=== PATIENT | female | born 1960 | race Caucasian/White ===

== ENCOUNTER 2016-07-26 07:07 | Emergency (ER) | payer MEDICARE ==
[~2016-07-26] VITALS: Ht 172.7 cm; Wt 97.2 kg
[~2016-07-26 07:07] MED LIST: ALBU0.63 NEB; ALBU6.7H INH; ALPR-475 PO; ASCO10004 PO; CYCL-259 PO; ESCI20TA10 PO; FLUT1DIS3 INH; IBUP-1 PO; LISI-170 PO; MAGNESIUM PO; OMEP40CA6 PO; ONDA8TAB12 PO; SIMV20TA3 PO; ZOLP10TA PO; [UNRECOGNIZED DRUG - OTHER] EACHEYE
[2016-07-26 07:08] VITALS: BP 137/82
== END 2016-07-26 09:49 | disposition home or self-care (01) ==
LOC: ED 09:35
DX: S06.0X0A Concussion without loss of consciousness, initial encounter (principal); S63.502A Unspecified sprain of left wrist, initial encounter; S40.012A Contusion of left shoulder, initial encounter; S20.212A Contusion of left front wall of thorax, initial encounter; J44.9 Chronic obstructive pulmonary disease, unspecified; I10 Essential (primary) hypertension; E78.00 Pure hypercholesterolemia, unspecified; I25.2 Old myocardial infarction; Z79.899 Other long term (current) drug therapy; W01.0XXA Fall on same level from slipping, tripping and stumbling without subsequent striking against object, initial encounter; Y93.89 Activity, other specified; Y99.8 Other external cause status; Y92.89 Other specified places as the place of occurrence of the external cause
CPT/HCPCS: 70450; 70486; 71250; 72125; 99284

== ENCOUNTER 2016-10-18 21:57 | Emergency (ER) | payer MEDICARE ==
[~2016-10-18] VITALS: Ht 172.7 cm; Wt 93.0 kg
[2016-10-18 22:00] VITALS: BP 93/61
== END 2016-10-18 23:46 | disposition left against medical advice (07) ==
LOC: ED 23:26
DX: R17 Unspecified jaundice (principal); E78.00 Pure hypercholesterolemia, unspecified; I25.2 Old myocardial infarction; I10 Essential (primary) hypertension; J44.9 Chronic obstructive pulmonary disease, unspecified
CPT/HCPCS: 99281

== ENCOUNTER 2016-10-25 13:34 | Observation (INO) | payer MEDICARE ==
[~2016-10-25] VITALS: Ht 172.7 cm; Wt 94.5 kg
[2016-10-25] MEDS ORDERED: SODIUM CHLORIDE 0.9% 1,000ML IVBOLUS ONE ×2 (14:00→15:00)
[2016-10-25 14:23] LABS: BLOOD UREA NITROGEN 21 mg/dL (7-18)
[2016-10-25 14:32] LABS: ASPARTATE AMINO TRANSFERASE 1170 U/L (15-37)
[2016-10-25 14:34] LABS: ACETAMINOPHEN < 2 mcg/mL (10-30); IS PT STATUS REG ER OR PRE ER? YES
[2016-10-25] MEDS ORDERED: BISACODYL 10 MG SUPP PR PRN (16:00)
[2016-10-25] MEDS ORDERED: ONDANSETRON 2MG/ML, 2ML IVPush PRN (16:00)
[2016-10-25] MEDS ORDERED: LORazepam 1MG TABLET PO PRN (16:00)
[2016-10-25] MEDS ORDERED: ONDANSETRON ODT 4 MG PO PRN (16:00)
[2016-10-25] MEDS ORDERED: ENOXAPARIN 40 MG/0.4 ML SQ SCH (16:00)
[2016-10-25] MEDS ORDERED: ALBUTEROL SULFATE 2.5 MG/3 ML NEB PRN ×2 (16:30→18:57)
[2016-10-25] MEDS ORDERED: ALBUTEROL SULFATE INH PRN (16:30)
[2016-10-25] MEDS ORDERED: ENOXAPARIN 40 MG/0.4 ML ONE (16:54)
[2016-10-25] MEDS: SODIUM CHLORIDE 0.9% 1,000 ML IV SCH ×2 (16:59→19:45)
[2016-10-25 17:22] LABS: DAU SCREEN DISCLAIMER
[2016-10-25 19:06] VITALS: BP 113/63
[2016-10-25 19:07] VITALS: BP 113/63
[2016-10-25] MEDS: LACTULOSE 10 GM/15 ML UDC PO SCH (19:45)
[2016-10-25] MEDS: SIMVASTATIN 20 MG TABLET PO SCH ×2 (19:46→21:00)
[2016-10-25 19:57] VITALS: BP 113/63
[2016-10-25] MEDS ORDERED: LISINOPRIL 20 MG TABLET PO SCH (21:00)
[2016-10-25] MEDS ORDERED: TIZA4CAP PO (23:45)
[2016-10-26] VITALS (8 sets, daily range): BP systolic 88–119; BP diastolic 56–72
[2016-10-26] MEDS: SODIUM CHLORIDE 0.9% 1,000 ML IV SCH ×2 (02:41→10:25)
[2016-10-26 06:50] LABS: ASPARTATE AMINO TRANSFERASE 720 U/L (15-37); BLOOD UREA NITROGEN 15 mg/dL (7-18)
[2016-10-26] MEDS: CITALOPRAM 20 MG TABLET PO SCH (10:08)
[2016-10-26] MEDS: SENNA/DOCUSATE TABLET PO SCH (10:08)
[2016-10-26] MEDS: LACTULOSE 10 GM/15 ML UDC PO SCH ×2 (10:08→21:43)
[2016-10-26] MEDS: OMEPRAZOLE 20 MG CAPSULE.DR PO SCH (10:09)
[2016-10-26] MEDS: FLUTICASONE/VILANTEROL 100-25MCG/INH INH SCH (12:02)
[2016-10-26] MEDS ORDERED: ENOXAPARIN 30 MG/0.3 ML SQ SCH (16:00)
[2016-10-26] MEDS: ENOXAPARIN 40 MG/0.4 ML SQ SCH (16:08)
[2016-10-26] MEDS: LATANOPROST OPHTH 0.005%, 2.5ML EACHEYE SCH (21:00)
[2016-10-26] MEDS: SIMVASTATIN 20 MG TABLET PO SCH (21:00)
[2016-10-27 05:02] LABS: BLOOD UREA NITROGEN 8 mg/dL (7-18)
[2016-10-27 07:20] VITALS: BP 124/78
[2016-10-27] MEDS: CITALOPRAM 20 MG TABLET PO SCH (08:43)
[2016-10-27] MEDS: OMEPRAZOLE 20 MG CAPSULE.DR PO SCH (08:43)
[2016-10-27] MEDS: LACTULOSE 10 GM/15 ML UDC PO SCH ×2 (08:43→21:12)
[2016-10-27] MEDS: SENNA/DOCUSATE TABLET PO SCH (08:44)
[2016-10-27] MEDS ORDERED: LATANOPROST OPHTH 0.005%, 2.5ML OP SCH (09:00)
[2016-10-27] MEDS: FLUTICASONE/VILANTEROL 100-25MCG/INH INH SCH (09:03)
[2016-10-27] MEDS: ENOXAPARIN 40 MG/0.4 ML SQ SCH (16:09)
[2016-10-27 19:29] VITALS: BP 138/72
[2016-10-27] MEDS: SIMVASTATIN 20 MG TABLET PO SCH ×2 (21:00→21:12)
[2016-10-27] MEDS: LATANOPROST OPHTH 0.005%, 2.5ML EACHEYE SCH (21:12)
[2016-10-28 07:35] VITALS: BP 156/76
[2016-10-28] MEDS: FLUTICASONE/VILANTEROL 100-25MCG/INH INH SCH (09:17)
[2016-10-28] MEDS: OMEPRAZOLE 20 MG CAPSULE.DR PO SCH (09:21)
[2016-10-28] MEDS: LACTULOSE 10 GM/15 ML UDC PO SCH ×2 (09:21→21:39)
[2016-10-28] MEDS: CITALOPRAM 20 MG TABLET PO SCH (09:21)
[2016-10-28] MEDS: SENNA/DOCUSATE TABLET PO SCH (09:24)
[2016-10-28] MEDS: ENOXAPARIN 40 MG/0.4 ML SQ SCH (16:23)
[2016-10-28] MEDS: POLYETHYLENE GLYCOL 17 GM PACKET PO PRN (18:19)
[2016-10-28 19:45] VITALS: BP 161/99
[2016-10-28] MEDS: LATANOPROST OPHTH 0.005%, 2.5ML EACHEYE SCH (21:38)
[2016-10-29] VITALS (10 sets, daily range): BP systolic 131–163; BP diastolic 54–91
[2016-10-29 06:00] LABS: ASPARTATE AMINO TRANSFERASE 330 U/L (15-37); BLOOD UREA NITROGEN 5 mg/dL (7-18)
[2016-10-29] MEDS: CITALOPRAM 20 MG TABLET PO SCH (09:00)
[2016-10-29] MEDS: FLUTICASONE/VILANTEROL 100-25MCG/INH INH SCH (09:00)
[2016-10-29] MEDS ORDERED: LIDOCAINE 1%, 20ML ONE (09:48)
[2016-10-29] MEDS ORDERED: NALOXONE 1 MG/ML, 2ML ONE (09:53)
[2016-10-29] MEDS ORDERED: MIDAZOLAM 1 MG/ML, 5ML ONE (09:53)
[2016-10-29] MEDS ORDERED: FENTANYL PF 100 MCG/2ML ONE (09:53)
[2016-10-29] MEDS ORDERED: FLUMAZENIL 0.1 MG/1 ML, 5ML ONE (09:53)
[2016-10-29] MEDS: LACTULOSE 10 GM/15 ML UDC PO SCH ×2 (12:24→20:47)
[2016-10-29] MEDS: OMEPRAZOLE 20 MG CAPSULE.DR PO SCH (12:24)
[2016-10-29] MEDS: SENNA/DOCUSATE TABLET PO SCH (12:25)
[2016-10-29] MEDS: ENOXAPARIN 40 MG/0.4 ML SQ SCH (16:00)
[2016-10-29] MEDS: LATANOPROST OPHTH 0.005%, 2.5ML EACHEYE SCH (20:47)
[2016-10-29] MEDS: POLYETHYLENE GLYCOL 17 GM PACKET PO PRN (20:53)
[2016-10-30 08:19] VITALS: BP 162/87
[2016-10-30] MEDS: FLUTICASONE/VILANTEROL 100-25MCG/INH INH SCH (08:22)
[2016-10-30] MEDS: LACTULOSE 10 GM/15 ML UDC PO SCH ×2 (08:22→20:42)
[2016-10-30] MEDS: SENNA/DOCUSATE TABLET PO SCH (08:22)
[2016-10-30] MEDS: CITALOPRAM 20 MG TABLET PO SCH (08:22)
[2016-10-30] MEDS: OMEPRAZOLE 20 MG CAPSULE.DR PO SCH (08:22)
[2016-10-30] MEDS: POLYETHYLENE GLYCOL 17 GM PACKET PO PRN (14:25)
[2016-10-30] MEDS: ENOXAPARIN 40 MG/0.4 ML SQ SCH (15:35)
[2016-10-30 19:39] VITALS: BP 183/92
[2016-10-30 19:51] VITALS: BP 155/83
[2016-10-30] MEDS: LATANOPROST OPHTH 0.005%, 2.5ML EACHEYE SCH (20:42)
[2016-10-31 08:00] VITALS: BP 179/97
[2016-10-31] MEDS: LACTULOSE 10 GM/15 ML UDC PO SCH ×2 (08:38→20:15)
[2016-10-31] MEDS: FLUTICASONE/VILANTEROL 100-25MCG/INH INH SCH (08:38)
[2016-10-31] MEDS: SENNA/DOCUSATE TABLET PO SCH (08:39)
[2016-10-31] MEDS: OMEPRAZOLE 20 MG CAPSULE.DR PO SCH (08:39)
[2016-10-31] MEDS: CITALOPRAM 20 MG TABLET PO SCH (08:39)
[2016-10-31] MEDS: POLYETHYLENE GLYCOL 17 GM PACKET PO PRN (12:57)
[2016-10-31] MEDS: ENOXAPARIN 40 MG/0.4 ML SQ SCH (15:48)
[2016-10-31 20:05] VITALS: BP 159/84
[2016-10-31] MEDS: AMLODIPINE 5 MG TABLET PO SCH (20:15)
[2016-10-31] MEDS: LATANOPROST OPHTH 0.005%, 2.5ML EACHEYE SCH (20:15)
[2016-11-01 07:05] VITALS: BP 135/80
[2016-11-01] MEDS: AMLODIPINE 5 MG TABLET PO SCH (09:00)
[2016-11-01] MEDS: CITALOPRAM 20 MG TABLET PO SCH (09:28)
[2016-11-01] MEDS: OMEPRAZOLE 20 MG CAPSULE.DR PO SCH (09:28)
[2016-11-01] MEDS: SENNA/DOCUSATE TABLET PO SCH (09:29)
[2016-11-01] MEDS: FLUTICASONE/VILANTEROL 100-25MCG/INH INH SCH (09:33)
[2016-11-01] MEDS: LACTULOSE 10 GM/15 ML UDC PO SCH (10:07)
[2016-11-01] MEDS: ENOXAPARIN 40 MG/0.4 ML SQ SCH (16:00)
[2016-11-01] MEDS ORDERED: CITA20TA9 PO (16:14)
[2016-11-01] MEDS ORDERED: OMEP-110 PO (16:14)
[2016-11-01] MEDS ORDERED: LATA2.5D3 EACHEYE (16:14)
[2016-11-01] MEDS ORDERED: AMLO5TAB2 PO (16:14)
[2016-11-01] MEDS ORDERED: ONDA4TAB13 PO (16:14)
[2016-11-01] MEDS ORDERED: LACT10SO5 PO (16:14)
[2016-11-01] MEDS ORDERED: POLY17PO5 PO (16:14)
[2016-11-01] MEDS ORDERED: ALBU2.5V NEB (16:14)
[2016-11-01] MEDS ORDERED: ALBUTEROL SULFATE INH (16:14)
[2016-11-01] MEDS ORDERED: FLUT1AER INH (16:14)
[2016-11-01] MEDS ORDERED: LISI-170 PO (16:18)
[2016-11-03 15:06] LABS: ANA DIRECT Negative (Negative); COMPLEMENT C3 88 mg/dL (82-167); COMPLEMENT C4 22 mg/dL (14-44); INTERMYOFIBRILLAR AB Negative (Neg:<1:20); PARIETAL CELL AB 28.4 Units (0.0-20.0); RA LATEX TURBIDITY <10.0 IU/mL (0.0-13.9); SARCOLEMMA AB Negative (Neg:<1:20); SJOGREN'S SS-A AB <0.2 AI (0.0-0.9); STRIATION AB Negative (Neg:<1:40); THYROID PEROXIDASE (TPO) AB 25 IU/mL (0-34)
== END 2016-11-01 17:18 | disposition still patient (30) ==
LOC: ED 15:29 → EDIP 15:30 → INTOOBSV 15:30 → 4EST 18:51 → 3E 10-26 20:27
DX: R45.851 Suicidal ideations (principal); K72.90 Hepatic failure, unspecified without coma; T54.91XA Toxic effect of unspecified corrosive substance, accidental (unintentional), initial encounter; E87.1 Hypo-osmolality and hyponatremia; N17.9 Acute kidney failure, unspecified; G89.29 Other chronic pain; K58.1 Irritable bowel syndrome with constipation; I25.10 Atherosclerotic heart disease of native coronary artery without angina pectoris; I10 Essential (primary) hypertension; E78.5 Hyperlipidemia, unspecified; I95.9 Hypotension, unspecified; F12.10 Cannabis abuse, uncomplicated; F15.20 Other stimulant dependence, uncomplicated; F43.21 Adjustment disorder with depressed mood; I25.2 Old myocardial infarction; J44.9 Chronic obstructive pulmonary disease, unspecified; K59.09 Other constipation; Y92.89 Other specified places as the place of occurrence of the external cause; Z80.9 Family history of malignant neoplasm, unspecified; Z91.81 History of falling
CPT/HCPCS: 36415; 47000; 76700; 76942; 80048; 80053; 80307; 80329; 81001; 82105; 82140; 82390; 82550; 82728; 83516; 84484; 85025; 85610; 85651; 86038; 86141; 86160; 86225; 86235; 86255; 86256; 86376; 86431; 86704; 86706; 86708; 86803; 87086; 87340; 88307; 88313; 93005; 96360; 96361; 96372; 99156; 99157; 99291; G0378; J1650; J2250; J3010; J3490; J7030; G0480; J2310

== ENCOUNTER 2016-11-14 00:39 | Emergency (ER) | payer MEDICARE ==
[~2016-11-14] VITALS: Ht 172.7 cm; Wt 90.7 kg
[~2016-11-14 00:39] MED LIST changes: +ALBU2.5V NEB; +ALBUTEROL SULFATE INH; +AMLO5TAB2 PO; +CITA20TA9 PO; +FLUT1AER INH; +LACT10SO5 PO; +LATA2.5D3 EACHEYE; +OMEP-110 PO; +ONDA4TAB13 PO; +POLY17PO5 PO; +TIZA4CAP PO
[2016-11-14 00:40] VITALS: BP 137/81
== END 2016-11-14 01:46 | disposition home or self-care (01) ==
LOC: ED 01:08
DX: S63.501A Unspecified sprain of right wrist, initial encounter (principal); J44.9 Chronic obstructive pulmonary disease, unspecified; I10 Essential (primary) hypertension; J45.909 Unspecified asthma, uncomplicated; I25.2 Old myocardial infarction; Z90.710 Acquired absence of both cervix and uterus; X58.XXXA Exposure to other specified factors, initial encounter; Y93.89 Activity, other specified; Y92.89 Other specified places as the place of occurrence of the external cause; Y99.8 Other external cause status
CPT/HCPCS: 99284

== ENCOUNTER 2016-11-18 20:40 | Emergency (ER) | payer MEDICARE ==
[~2016-11-18] VITALS: Ht 172.7 cm; Wt 95.9 kg
[2016-11-18 23:18] LABS: HEMATOCRIT 32.7 % (34.6-47.8); HEMOGLOBIN 10.8 g/dL (11.7-16.4); WHITE BLOOD COUNT 7.2 x10^3/uL (3.4-10)
[2016-11-18 23:29] LABS: ASPARTATE AMINO TRANSFERASE 412 U/L (15-37); BLOOD UREA NITROGEN 11 mg/dL (7-18)
[2016-11-18 23:35] LABS: IS PT STATUS REG ER OR PRE ER? YES
[2016-11-19 01:00] VITALS: BP 118/76
== END 2016-11-19 01:03 | disposition home or self-care (01) ==
LOC: ED 22:17
DX: R60.0 Localized edema (principal); E88.09 Other disorders of plasma-protein metabolism, not elsewhere classified; R74.8 Abnormal levels of other serum enzymes; Z72.89 Other problems related to lifestyle; J44.9 Chronic obstructive pulmonary disease, unspecified; I10 Essential (primary) hypertension
CPT/HCPCS: 36415; 71010; 80053; 83880; 84484; 85025; 93005; 99285

== ENCOUNTER 2016-12-03 13:15 | Inpatient (IN) | payer MEDICARE ==
[~2016-12-03] VITALS: Ht 172.7 cm; Wt 89.6 kg
[~2016-12-03 13:15] MED LIST changes: -IBUP-1 PO; +IBUP-11 PO
[2016-12-03] MEDS ORDERED: KETOROLAC 30 MG/1 ML IVPush ONE (14:00)
[2016-12-03] MEDS ORDERED: SODIUM CHLORIDE 0.9% 1,000ML IVBOLUS ONE (14:00)
[2016-12-03] MEDS ORDERED: SODIUM CHLORIDE FLUSH 10ML SYR IVF ONE ×2 (14:00)
[2016-12-03] MEDS ORDERED: DIPHENHYDRAMINE 50 MG/ML, 1ML IVPush ONE (14:00)
[2016-12-03] MEDS ORDERED: ASPIRIN 81 MG TABLET CHEW PO ONE (14:00)
[2016-12-03] MEDS ORDERED: HALOPERIDOL 5 MG/ML IV ONE (14:00)
[2016-12-03] MEDS ORDERED: METOCLOPRAMIDE 5 MG/ML, 2ML IVPush ONE (14:00)
[2016-12-03 14:03] LABS: HEMATOCRIT 40.7 % (34.6-47.8); HEMOGLOBIN 13.5 g/dL (11.7-16.4); WHITE BLOOD COUNT 6.7 x10^3/uL (3.4-10)
[2016-12-03] MEDS ORDERED: METOCLOPRAMIDE 5 MG/ML, 2ML ONE (14:08)
[2016-12-03] MEDS ORDERED: ASPIRIN 81 MG TABLET CHEW ONE (14:08)
[2016-12-03] MEDS ORDERED: HALOPERIDOL 5 MG/ML ONE (14:08)
[2016-12-03] MEDS ORDERED: DIPHENHYDRAMINE 50 MG/ML, 1ML ONE (14:08)
[2016-12-03] MEDS ORDERED: KETOROLAC 30 MG/1 ML ONE (14:08)
[2016-12-03 14:13] LABS: BLOOD UREA NITROGEN 13 mg/dL (7-18)
[2016-12-03 14:18] LABS: ASPARTATE AMINO TRANSFERASE 595 U/L (15-37)
[2016-12-03 14:19] LABS: IS PT STATUS REG ER OR PRE ER? YES
[2016-12-03] MEDS ORDERED: ONDANSETRON 2MG/ML, 2ML IVPush PRN (16:30)
[2016-12-03] MEDS ORDERED: ALBUTEROL SULFATE 2.5 MG/3 ML NEB PRN (16:30)
[2016-12-03] MEDS ORDERED: ACETAMINOPHEN 325 MG TABLET PO PRN (16:30)
[2016-12-03] MEDS ORDERED: ENOXAPARIN 40 MG/0.4 ML ONE (16:36)
[2016-12-03] MEDS: ENOXAPARIN 40 MG/0.4 ML SQ SCH (16:38)
[2016-12-03] MEDS ORDERED: VALACYCLOVIR 500MG TABLET PO ONE (17:00)
[2016-12-03] MEDS: VALACYCLOVIR 500MG TABLET PO SCH (17:37)
[2016-12-03 18:29] VITALS: BP 105/68
[2016-12-03 20:14] VITALS: BP 106/66
[2016-12-03] MEDS: AMLODIPINE 5 MG TABLET PO SCH (20:37)
[2016-12-03] MEDS: LACTULOSE 10 GM/15 ML UDC PO SCH (20:37)
[2016-12-03] MEDS ORDERED: LATANOPROST OPHTH 0.005%, 2.5ML EACHEYE SCH (21:00)
[2016-12-03 21:16] LABS: DAU SCREEN DISCLAIMER
[2016-12-03] MEDS: LACTATED RINGERS 1,000 ML IV SCH (22:28)
[2016-12-03] MEDS ORDERED: CYAN100063 IM (22:47)
[2016-12-03] MEDS ORDERED: FOLI0.4T2 PO (22:47)
[2016-12-04 00:03] LABS: IS PT STATUS REG ER OR PRE ER? NO
[2016-12-04] MEDS: VALACYCLOVIR 500MG TABLET PO SCH ×3 (00:42→15:39)
[2016-12-04 02:11] VITALS: BP 79/50
[2016-12-04 03:21] VITALS: BP 82/57
[2016-12-04] MEDS ORDERED: SODIUM CHLORIDE 0.9%, 250ML IVBOLUS ONE (04:00)
[2016-12-04 05:12] LABS: BLOOD UREA NITROGEN 8 mg/dL (7-18)
[2016-12-04 05:24] LABS: IS PT STATUS REG ER OR PRE ER? NO
[2016-12-04] MEDS ORDERED: ASPIRIN 325 MG TABLET EC PO SCH (06:00)
[2016-12-04] MEDS: LACTATED RINGERS 1,000 ML IV SCH (06:28)
[2016-12-04 08:28] VITALS: BP 101/54
[2016-12-04] MEDS: AMLODIPINE 5 MG TABLET PO SCH (08:55)
[2016-12-04] MEDS ORDERED: CITALOPRAM 20 MG TABLET PO SCH (09:00)
[2016-12-04] MEDS ORDERED: OMEPRAZOLE 20 MG CAPSULE.DR PO SCH (09:00)
[2016-12-04] MEDS: LACTULOSE 10 GM/15 ML UDC PO SCH (09:00)
[2016-12-04] MEDS ORDERED: POTASSIUM CHLORIDE 20 MEQ TAB.ER.PRT PO ONE (11:00)
[2016-12-04 13:22] VITALS: BP 95/58
[2016-12-04] MEDS ORDERED: REGADENOSON 0.4 MG/5 ML SYRINGE ONE (14:02)
[2016-12-04] MEDS: ENOXAPARIN 40 MG/0.4 ML SQ SCH (15:40)
== END 2016-12-04 18:16 | disposition home or self-care (01) | DRG 896 ==
LOC: ED 13:59 → EDIP 15:48 → SUATTDRO 16:15 → 5SO 18:17
PROVIDERS: ADMIT Internal Medicine; ATTEND Internal Medicine
DX: F15.188 Other stimulant abuse with other stimulant-induced disorder (principal); N17.0 Acute kidney failure with tubular necrosis; B02.9 Zoster without complications; J98.4 Other disorders of lung; E87.5 Hyperkalemia; K75.9 Inflammatory liver disease, unspecified; I10 Essential (primary) hypertension; R07.89 Other chest pain; I25.2 Old myocardial infarction; E87.6 Hypokalemia; F17.290 Nicotine dependence, other tobacco product, uncomplicated; F41.9 Anxiety disorder, unspecified; J44.9 Chronic obstructive pulmonary disease, unspecified; E86.1 Hypovolemia; Z59.0 Homelessness; Z90.49 Acquired absence of other specified parts of digestive tract; Z98.51 Tubal ligation status; Z90.710 Acquired absence of both cervix and uterus; Z79.899 Other long term (current) drug therapy; V43.52XA Car driver injured in collision with other type car in traffic accident, initial encounter; F12.188 Cannabis abuse with other cannabis-induced disorder; F13.188 Sedative, hypnotic or anxiolytic abuse with other sedative, hypnotic or anxiolytic-induced disorder
CPT/HCPCS: 36415; 71010; 78452; 80048; 80053; 80061; 80307; 83690; 83735; 83880; 84100; 84484; 85025; 85610; 85730; 93005; 93017; 96361; 96374; 96375; J1650; J1885; J2785; A9502; C9898; J1200; J1630; J2765; J7030; J7050; J7120

== ENCOUNTER 2016-12-04 21:46 | Observation (INO) | payer MEDICARE ==
[~2016-12-04] VITALS: Ht 172.7 cm; Wt 85.2 kg
[~2016-12-04 21:46] MED LIST changes: +CYAN100063 IM; +FOLI0.4T2 PO
[2016-12-04 22:10] LABS: HEMATOCRIT 38.7 % (34.6-47.8); HEMOGLOBIN 12.7 g/dL (11.7-16.4); WHITE BLOOD COUNT 7.9 x10^3/uL (3.4-10)
[2016-12-04 22:18] LABS: DAU SCREEN DISCLAIMER
[2016-12-04 22:20] LABS: ASPARTATE AMINO TRANSFERASE 528 U/L (15-37); BLOOD UREA NITROGEN 7 mg/dL (7-18)
[2016-12-04 22:27] LABS: ACETAMINOPHEN < 2 mcg/mL (10-30)
[2016-12-05] MEDS ORDERED: BISACODYL 10 MG SUPP PR PRN (02:30)
[2016-12-05] MEDS ORDERED: SODIUM CHLORIDE 0.9% 1,000 ML IV SCH (02:30)
[2016-12-05] MEDS ORDERED: ALBUTEROL SULFATE 2.5 MG/3 ML NEB PRN (03:00)
[2016-12-05] MEDS ORDERED: ONDANSETRON ODT 4 MG PO PRN (03:00)
[2016-12-05 08:00] VITALS: BP 102/65
[2016-12-05] MEDS ORDERED: ALBUTEROL SULFATE INH PRN (08:00)
[2016-12-05] MEDS ORDERED: TIZANIDINE 4MG TABLET PO PRN (08:00)
[2016-12-05] MEDS ORDERED: PHARMACY MAY ADJ FOR RENAL FX MC PRN (08:30)
[2016-12-05] MEDS ORDERED: SENNA/DOCUSATE TABLET PO SCH (09:00)
[2016-12-05] MEDS ORDERED: CYANOCOBALAMIN 1,000 MCG/ML, 1ML IM SCH (09:00)
[2016-12-05] MEDS: LACTULOSE 10 GM/15 ML UDC PO SCH ×2 (09:16→20:07)
[2016-12-05] MEDS: CITALOPRAM 20 MG TABLET PO SCH (09:16)
[2016-12-05] MEDS: FOLIC ACID 1 MG TABLET PO SCH (09:26)
[2016-12-05] MEDS: AMLODIPINE 5 MG TABLET PO SCH ×2 (09:26→20:10)
[2016-12-05] MEDS: FLUTICASONE/VILANTEROL 100-25MCG/INH INH SCH (11:15)
[2016-12-05] MEDS: SODIUM CHLORIDE 0.9% 1,000 ML IV SCH ×2 (11:15→20:08)
[2016-12-05 13:13] VITALS: BP_SYST 90; BP_SYST 92; BP_DIAS 53; BP_DIAS 55
[2016-12-05 19:04] VITALS: BP 84/40
[2016-12-05] MEDS: LATANOPROST OPHTH 0.005%, 2.5ML EACHEYE SCH (20:07)
[2016-12-06 00:37] VITALS: BP 100/56
[2016-12-06] MEDS: SODIUM CHLORIDE 0.9% 1,000 ML IV SCH ×3 (04:10→20:08)
[2016-12-06 05:45] LABS: BLOOD UREA NITROGEN 4 mg/dL (7-18)
[2016-12-06 05:47] LABS: ASPARTATE AMINO TRANSFERASE 441 U/L (15-37)
[2016-12-06 08:43] VITALS: BP 110/51
[2016-12-06] MEDS: FLUTICASONE/VILANTEROL 100-25MCG/INH INH SCH (08:45)
[2016-12-06] MEDS: LACTULOSE 10 GM/15 ML UDC PO SCH ×2 (08:45→20:08)
[2016-12-06] MEDS: CITALOPRAM 20 MG TABLET PO SCH (08:45)
[2016-12-06] MEDS: AMLODIPINE 5 MG TABLET PO SCH ×2 (08:45→20:09)
[2016-12-06] MEDS: SENNA/DOCUSATE TABLET PO SCH (08:45)
[2016-12-06] MEDS: FOLIC ACID 1 MG TABLET PO SCH (08:45)
[2016-12-06] MEDS ORDERED: DIPHENHYDRAMINE 25 MG CAPSULE PO PRN (09:30)
[2016-12-06] MEDS: VALACYCLOVIR 500MG TABLET PO SCH ×2 (10:20→17:51)
[2016-12-06 14:03] VITALS: BP 120/76
[2016-12-06] MEDS: GABAPENTIN 100 MG CAPSULE PO SCH ×2 (16:33→20:09)
[2016-12-06 19:40] VITALS: BP 116/72
[2016-12-06] MEDS: LATANOPROST OPHTH 0.005%, 2.5ML EACHEYE SCH (20:08)
[2016-12-06] MEDS: ONDANSETRON ODT 4 MG PO PRN (23:47)
[2016-12-07 00:12] VITALS: BP 136/71
[2016-12-07] MEDS: VALACYCLOVIR 500MG TABLET PO SCH ×3 (01:13→17:33)
[2016-12-07] MEDS: SODIUM CHLORIDE 0.9% 1,000 ML IV SCH (03:43)
[2016-12-07] MEDS: ONDANSETRON ODT 4 MG PO PRN (07:20)
[2016-12-07 08:22] LABS: BLOOD UREA NITROGEN 2 mg/dL (7-18)
[2016-12-07 08:45] VITALS: BP 131/75
[2016-12-07] MEDS: FLUTICASONE/VILANTEROL 100-25MCG/INH INH SCH (09:47)
[2016-12-07] MEDS: FOLIC ACID 1 MG TABLET PO SCH (09:47)
[2016-12-07] MEDS: CITALOPRAM 20 MG TABLET PO SCH (09:47)
[2016-12-07] MEDS: SENNA/DOCUSATE TABLET PO SCH (09:47)
[2016-12-07] MEDS: AMLODIPINE 5 MG TABLET PO SCH ×2 (09:47→20:44)
[2016-12-07] MEDS: LACTULOSE 10 GM/15 ML UDC PO SCH ×2 (09:48→20:44)
[2016-12-07] MEDS: GABAPENTIN 100 MG CAPSULE PO SCH ×3 (09:48→20:44)
[2016-12-07 12:40] VITALS: BP 132/59
[2016-12-07 19:37] VITALS: BP 134/87
[2016-12-07] MEDS: LATANOPROST OPHTH 0.005%, 2.5ML EACHEYE SCH (20:44)
[2016-12-08] MEDS: VALACYCLOVIR 500MG TABLET PO SCH ×3 (01:17→17:44)
[2016-12-08 01:18] VITALS: BP 139/76
[2016-12-08 07:20] VITALS: BP 140/74
[2016-12-08] MEDS: FLUTICASONE/VILANTEROL 100-25MCG/INH INH SCH (10:30)
[2016-12-08] MEDS: GABAPENTIN 100 MG CAPSULE PO SCH ×3 (10:31→21:27)
[2016-12-08] MEDS: CITALOPRAM 20 MG TABLET PO SCH (10:31)
[2016-12-08] MEDS: FOLIC ACID 1 MG TABLET PO SCH (10:31)
[2016-12-08] MEDS: AMLODIPINE 5 MG TABLET PO SCH ×2 (10:31→21:27)
[2016-12-08] MEDS: SENNA/DOCUSATE TABLET PO SCH (10:31)
[2016-12-08] MEDS: LACTULOSE 10 GM/15 ML UDC PO SCH ×2 (10:31→21:27)
[2016-12-08 13:15] VITALS: BP 148/81
[2016-12-08 19:16] VITALS: BP 138/69
[2016-12-08] MEDS: LATANOPROST OPHTH 0.005%, 2.5ML EACHEYE SCH (21:27)
[2016-12-09 01:07] VITALS: BP 139/80
[2016-12-09] MEDS: VALACYCLOVIR 500MG TABLET PO SCH ×3 (02:30→16:46)
[2016-12-09 07:17] VITALS: BP 144/85
[2016-12-09] MEDS: AMLODIPINE 5 MG TABLET PO SCH ×2 (10:24→20:17)
[2016-12-09] MEDS: FLUTICASONE/VILANTEROL 100-25MCG/INH INH SCH (10:24)
[2016-12-09] MEDS: GABAPENTIN 100 MG CAPSULE PO SCH ×3 (10:24→20:17)
[2016-12-09] MEDS: FOLIC ACID 1 MG TABLET PO SCH (10:25)
[2016-12-09] MEDS: SENNA/DOCUSATE TABLET PO SCH (10:25)
[2016-12-09] MEDS: CITALOPRAM 20 MG TABLET PO SCH (10:25)
[2016-12-09] MEDS: LACTULOSE 10 GM/15 ML UDC PO SCH ×2 (10:26→20:17)
[2016-12-09] MEDS: ONDANSETRON ODT 8 MG PO PRN (10:30)
[2016-12-09 14:07] VITALS: BP 141/80
[2016-12-09 19:02] VITALS: BP 128/70
[2016-12-09] MEDS: LATANOPROST OPHTH 0.005%, 2.5ML EACHEYE SCH (20:17)
[2016-12-09] MEDS: ONDANSETRON ODT 4 MG PO PRN (22:54)
[2016-12-10] MEDS: VALACYCLOVIR 500MG TABLET PO SCH ×3 (00:57→17:08)
[2016-12-10 02:45] VITALS: BP 138/75
[2016-12-10 05:55] LABS: ASPARTATE AMINO TRANSFERASE 123 U/L (15-37); BLOOD UREA NITROGEN 6 mg/dL (7-18)
[2016-12-10 06:00] LABS: HEMATOCRIT 42.4 % (34.6-47.8); HEMOGLOBIN 13.9 g/dL (11.7-16.4); WHITE BLOOD COUNT 10.7 x10^3/uL (3.4-10)
[2016-12-10 06:59] VITALS: BP 156/77
[2016-12-10] MEDS: FLUTICASONE/VILANTEROL 100-25MCG/INH INH SCH (08:57)
[2016-12-10] MEDS: LACTULOSE 10 GM/15 ML UDC PO SCH ×2 (08:57→20:30)
[2016-12-10] MEDS: SENNA/DOCUSATE TABLET PO SCH (08:58)
[2016-12-10] MEDS: CITALOPRAM 20 MG TABLET PO SCH (08:58)
[2016-12-10] MEDS: AMLODIPINE 5 MG TABLET PO SCH ×2 (08:58→20:30)
[2016-12-10] MEDS: FOLIC ACID 1 MG TABLET PO SCH (08:58)
[2016-12-10] MEDS: GABAPENTIN 100 MG CAPSULE PO SCH ×3 (08:58→20:30)
[2016-12-10 13:10] VITALS: BP 133/81
[2016-12-10] MEDS ORDERED: POTASSIUM CHLORIDE 20 MEQ TAB.ER.PRT PO ONE (16:30)
[2016-12-10] MEDS ORDERED: POTASSIUM CHLORIDE 10 MEQ TABLET.ER ONE (17:11)
[2016-12-10 18:53] VITALS: BP 154/82
[2016-12-10] MEDS: LATANOPROST OPHTH 0.005%, 2.5ML EACHEYE SCH (20:30)
[2016-12-11 01:30] VITALS: BP 154/80
[2016-12-11] MEDS: VALACYCLOVIR 500MG TABLET PO SCH ×3 (01:34→17:30)
[2016-12-11] MEDS: ONDANSETRON ODT 4 MG PO PRN (05:04)
[2016-12-11 05:13] LABS: BLOOD UREA NITROGEN 8 mg/dL (7-18)
[2016-12-11 08:30] VITALS: BP 113/76
[2016-12-11] MEDS: FLUTICASONE/VILANTEROL 100-25MCG/INH INH SCH (09:18)
[2016-12-11] MEDS: FOLIC ACID 1 MG TABLET PO SCH (09:19)
[2016-12-11] MEDS: AMLODIPINE 5 MG TABLET PO SCH ×2 (09:19→21:43)
[2016-12-11] MEDS: SENNA/DOCUSATE TABLET PO SCH (09:19)
[2016-12-11] MEDS: LACTULOSE 10 GM/15 ML UDC PO SCH ×2 (09:19→21:43)
[2016-12-11] MEDS: GABAPENTIN 100 MG CAPSULE PO SCH ×3 (09:19→21:43)
[2016-12-11] MEDS: ONDANSETRON ODT 8 MG PO PRN ×2 (09:19→15:42)
[2016-12-11] MEDS: CITALOPRAM 20 MG TABLET PO SCH (09:19)
[2016-12-11 13:48] VITALS: BP 134/78
[2016-12-11] MEDS: OMEPRAZOLE 20 MG CAPSULE.DR PO SCH ×2 (15:44→21:43)
[2016-12-11 18:36] VITALS: BP 156/83
[2016-12-11] MEDS ORDERED: OMEPRAZOLE 20 MG CAPSULE.DR PO SCH (21:00)
[2016-12-11] MEDS: LATANOPROST OPHTH 0.005%, 2.5ML EACHEYE SCH (21:43)
[2016-12-12 01:24] VITALS: BP 136/73
[2016-12-12] MEDS: VALACYCLOVIR 500MG TABLET PO SCH ×2 (02:00→09:16)
[2016-12-12] MEDS: ONDANSETRON ODT 4 MG PO PRN (02:03)
[2016-12-12 07:03] VITALS: BP 136/77
[2016-12-12] MEDS: FLUTICASONE/VILANTEROL 100-25MCG/INH INH SCH (09:13)
[2016-12-12] MEDS: FOLIC ACID 1 MG TABLET PO SCH (09:14)
[2016-12-12] MEDS: GABAPENTIN 100 MG CAPSULE PO SCH ×3 (09:14→20:34)
[2016-12-12] MEDS: AMLODIPINE 5 MG TABLET PO SCH ×2 (09:14→20:34)
[2016-12-12] MEDS: CITALOPRAM 20 MG TABLET PO SCH (09:14)
[2016-12-12] MEDS: LACTULOSE 10 GM/15 ML UDC PO SCH ×2 (09:14→20:34)
[2016-12-12] MEDS: SENNA/DOCUSATE TABLET PO SCH (09:15)
[2016-12-12] MEDS: OMEPRAZOLE 20 MG CAPSULE.DR PO SCH ×2 (09:15→20:34)
[2016-12-12 13:47] VITALS: BP 146/82
[2016-12-12] MEDS ORDERED: VALACYCLOVIR 500MG TABLET PO SCH (17:30)
[2016-12-12] MEDS: POLYETHYLENE GLYCOL 17 GM PACKET PO PRN (18:20)
[2016-12-12 19:18] VITALS: BP 138/78
[2016-12-12] MEDS: LATANOPROST OPHTH 0.005%, 2.5ML EACHEYE SCH (20:34)
[2016-12-13 01:16] VITALS: BP 134/80
[2016-12-13 04:37] LABS: HEMATOCRIT 37.9 % (34.6-47.8); HEMOGLOBIN 12.7 g/dL (11.7-16.4); WHITE BLOOD COUNT 8.9 x10^3/uL (3.4-10)
[2016-12-13 04:49] LABS: BLOOD UREA NITROGEN 9 mg/dL (7-18)
[2016-12-13] MEDS: ONDANSETRON ODT 8 MG PO PRN (06:36)
[2016-12-13 07:19] VITALS: BP 121/78
[2016-12-13] MEDS ORDERED: POTASSIUM CHLORIDE 20 MEQ TAB.ER.PRT PO ONE ×2 (08:30→14:00)
[2016-12-13] MEDS: LACTULOSE 10 GM/15 ML UDC PO SCH ×2 (09:04→20:49)
[2016-12-13] MEDS: CITALOPRAM 20 MG TABLET PO SCH (09:04)
[2016-12-13] MEDS: OMEPRAZOLE 20 MG CAPSULE.DR PO SCH ×2 (09:04→20:49)
[2016-12-13] MEDS: AMLODIPINE 5 MG TABLET PO SCH ×2 (09:04→20:49)
[2016-12-13] MEDS: GABAPENTIN 100 MG CAPSULE PO SCH ×3 (09:04→20:49)
[2016-12-13] MEDS: SENNA/DOCUSATE TABLET PO SCH (09:04)
[2016-12-13] MEDS: FOLIC ACID 1 MG TABLET PO SCH (09:04)
[2016-12-13] MEDS: FLUTICASONE/VILANTEROL 100-25MCG/INH INH SCH (09:04)
[2016-12-13] MEDS: POLYETHYLENE GLYCOL 17 GM PACKET PO PRN (09:33)
[2016-12-13 12:50] VITALS: BP 149/80
[2016-12-13 19:57] VITALS: BP 146/82
[2016-12-13] MEDS: LATANOPROST OPHTH 0.005%, 2.5ML EACHEYE SCH (20:50)
[2016-12-14 06:04] LABS: HEMATOCRIT 39.6 % (34.6-47.8); WHITE BLOOD COUNT 8.1 x10^3/uL (3.4-10)
[2016-12-14 06:05] LABS: BLOOD UREA NITROGEN 7 mg/dL (7-18)
[2016-12-14 08:00] VITALS: BP 158/91
[2016-12-14] MEDS: LACTULOSE 10 GM/15 ML UDC PO SCH ×2 (08:45→20:18)
[2016-12-14] MEDS: FOLIC ACID 1 MG TABLET PO SCH (08:46)
[2016-12-14] MEDS: CITALOPRAM 20 MG TABLET PO SCH (08:46)
[2016-12-14] MEDS: AMLODIPINE 5 MG TABLET PO SCH ×2 (08:46→20:18)
[2016-12-14] MEDS: FLUTICASONE/VILANTEROL 100-25MCG/INH INH SCH (08:46)
[2016-12-14] MEDS: GABAPENTIN 100 MG CAPSULE PO SCH ×3 (08:46→20:18)
[2016-12-14] MEDS: SENNA/DOCUSATE TABLET PO SCH (08:46)
[2016-12-14] MEDS: OMEPRAZOLE 20 MG CAPSULE.DR PO SCH ×2 (08:46→20:18)
[2016-12-14] MEDS: POLYETHYLENE GLYCOL 17 GM PACKET PO PRN (12:58)
[2016-12-14 19:52] VITALS: BP 146/78
[2016-12-14] MEDS: LATANOPROST OPHTH 0.005%, 2.5ML EACHEYE SCH (20:17)
[2016-12-15] MEDS: ONDANSETRON ODT 4 MG PO PRN (01:59)
[2016-12-15 08:06] VITALS: BP 146/90
[2016-12-15] MEDS: FLUTICASONE/VILANTEROL 100-25MCG/INH INH SCH (09:43)
[2016-12-15] MEDS: CITALOPRAM 20 MG TABLET PO SCH (09:44)
[2016-12-15] MEDS: FOLIC ACID 1 MG TABLET PO SCH (09:44)
[2016-12-15] MEDS: GABAPENTIN 100 MG CAPSULE PO SCH ×3 (09:44→20:18)
[2016-12-15] MEDS: SENNA/DOCUSATE TABLET PO SCH (09:44)
[2016-12-15] MEDS: LACTULOSE 10 GM/15 ML UDC PO SCH ×2 (09:44→20:18)
[2016-12-15] MEDS: OMEPRAZOLE 20 MG CAPSULE.DR PO SCH ×2 (09:44→20:18)
[2016-12-15] MEDS: AMLODIPINE 5 MG TABLET PO SCH ×2 (09:44→20:18)
[2016-12-15] MEDS: POLYETHYLENE GLYCOL 17 GM PACKET PO PRN (12:14)
[2016-12-15 19:25] VITALS: BP 148/80
[2016-12-15] MEDS: LATANOPROST OPHTH 0.005%, 2.5ML EACHEYE SCH (20:18)
[2016-12-16] MEDS: ONDANSETRON ODT 4 MG PO PRN (06:15)
[2016-12-16 07:32] VITALS: BP 142/89
[2016-12-16] MEDS: POLYETHYLENE GLYCOL 17 GM PACKET PO PRN (08:23)
[2016-12-16] MEDS: FLUTICASONE/VILANTEROL 100-25MCG/INH INH SCH (08:23)
[2016-12-16] MEDS: FOLIC ACID 1 MG TABLET PO SCH (08:24)
[2016-12-16] MEDS: LACTULOSE 10 GM/15 ML UDC PO SCH (08:24)
[2016-12-16] MEDS: SENNA/DOCUSATE TABLET PO SCH (08:24)
[2016-12-16] MEDS: AMLODIPINE 5 MG TABLET PO SCH (08:24)
[2016-12-16] MEDS: OMEPRAZOLE 20 MG CAPSULE.DR PO SCH (08:24)
[2016-12-16] MEDS: GABAPENTIN 100 MG CAPSULE PO SCH ×2 (08:24→16:16)
[2016-12-16] MEDS: CITALOPRAM 20 MG TABLET PO SCH (08:24)
[2016-12-17] MEDS ORDERED: SENNA/DOCUSATE TABLET PO SCH (09:00)
== END 2016-12-16 18:00 | disposition home or self-care (01) ==
LOC: ED 22:05 → EDIP 12-05 01:17 → 3E 12-05 03:08 → 3NE 12-05 10:45 → 3E 12-13 15:42
PROVIDERS: ADMIT Hospitalist; ATTEND Hospitalist
DX: R45.851 Suicidal ideations (principal); K72.90 Hepatic failure, unspecified without coma; K74.60 Unspecified cirrhosis of liver; I10 Essential (primary) hypertension; E78.5 Hyperlipidemia, unspecified; K58.1 Irritable bowel syndrome with constipation; F41.1 Generalized anxiety disorder; B02.9 Zoster without complications; F33.0 Major depressive disorder, recurrent, mild; I25.2 Old myocardial infarction; J44.9 Chronic obstructive pulmonary disease, unspecified; Z59.0 Homelessness
CPT/HCPCS: 36415; 76700; 80048; 80053; 80307; 80329; 82040; 84439; 84443; 85025; 96360; 96361; 99285; G0378; J7030; Q0162; G0480

== ENCOUNTER 2016-12-25 18:42 | Inpatient (IN) | payer MEDICARE ==
[~2016-12-25] VITALS: Ht 172.7 cm; Wt 91.1 kg
[2016-12-25] MEDS ORDERED: SODIUM CHLORIDE FLUSH 10ML SYR IVF ONE (19:30)
[2016-12-25 19:43] LABS: HEMATOCRIT 36.1 % (34.6-47.8); HEMOGLOBIN 12.1 g/dL (11.7-16.4)
[2016-12-25 19:56] LABS: ASPARTATE AMINO TRANSFERASE 815 U/L (15-37); BLOOD UREA NITROGEN 12 mg/dL (7-18)
[2016-12-25 20:01] LABS: IS PT STATUS REG ER OR PRE ER? YES
[2016-12-25 21:00] LABS: ACETAMINOPHEN < 2 mcg/mL (10-30)
[2016-12-25] MEDS ORDERED: SODIUM CHLORIDE 0.9% 1,000ML IVBOLUS ONE (21:00)
[2016-12-25] MEDS ORDERED: LACT10SO28 PO (21:14)
[2016-12-25] MEDS ORDERED: KETOROLAC 30 MG/1 ML IVPush PRN (22:30)
[2016-12-25] MEDS ORDERED: TEMAZEPAM 15 MG CAPSULE PO PRN (22:30)
[2016-12-25] MEDS ORDERED: ONDANSETRON 2MG/ML, 2ML IVPush PRN (22:30)
[2016-12-25 23:02] LABS: DAU SCREEN DISCLAIMER
[2016-12-25 23:07] VITALS: BP 102/61
[2016-12-26] MEDS: HEPARIN 5,000 UNITS/ML, 1ML SQ SCH ×3 (00:23→17:00)
[2016-12-26] MEDS: NS + 20MEQ KCL 1,000 ML IV SCH ×2 (00:23→13:59)
[2016-12-26 03:01] VITALS: BP 105/72
[2016-12-26 05:03] LABS: HEMATOCRIT 33.2 % (34.6-47.8); HEMOGLOBIN 11.3 g/dL (11.7-16.4); WHITE BLOOD COUNT 6.1 x10^3/uL (3.4-10)
[2016-12-26 05:17] LABS: BLOOD UREA NITROGEN 8 mg/dL (7-18)
[2016-12-26 07:06] VITALS: BP 83/54
[2016-12-26 07:10] VITALS: BP_SYST 104; BP_SYST 76; BP_DIAS 50; BP_DIAS 70
[2016-12-26] MEDS ORDERED: OMEPRAZOLE 20 MG CAPSULE.DR PO SCH (09:00)
[2016-12-26] MEDS ORDERED: CITALOPRAM 20 MG TABLET PO SCH (09:00)
[2016-12-26] MEDS: LACTULOSE 10 GM/15 ML UDC PO SCH ×2 (10:52→18:32)
[2016-12-26 12:51] VITALS: BP_SYST 92; BP_SYST 96; BP_DIAS 55; BP_DIAS 60
[2016-12-26 12:52] VITALS: BP 90/52
[2016-12-26] MEDS ORDERED: POLYETHYLENE GLYCOL 17 GM PACKET PO PRN (13:00)
[2016-12-26] MEDS ORDERED: POLYETHYLENE GLYCOL 17 GM PACKET NG ONE (13:00)
[2016-12-26] MEDS ORDERED: LATANOPROST OPHTH 0.005%, 2.5ML EACHEYE SCH (21:00)
== END 2016-12-26 20:30 | disposition home or self-care (01) | DRG 74 ==
LOC: ED 21:21 → EDIP 22:08 → 4WST 23:30
PROVIDERS: ADMIT Internal Medicine; ATTEND Internal Medicine
DX: G90.8 Other disorders of autonomic nervous system (principal); I95.0 Idiopathic hypotension; K74.60 Unspecified cirrhosis of liver; I10 Essential (primary) hypertension; J98.11 Atelectasis; R55 Syncope and collapse; F17.210 Nicotine dependence, cigarettes, uncomplicated; J44.9 Chronic obstructive pulmonary disease, unspecified; K76.89 Other specified diseases of liver; F32.9 Major depressive disorder, single episode, unspecified; F41.1 Generalized anxiety disorder; I25.2 Old myocardial infarction; Z59.0 Homelessness
CPT/HCPCS: 36415; 71010; 80048; 80053; 80307; 80329; 81001; 83735; 83880; 84443; 84484; 85025; 87086; 93005; 96360; J1644; J3480; G0479; G0480; J7030

== ENCOUNTER 2016-12-29 14:27 | Emergency (ER) | payer MEDICARE ==
[~2016-12-29] VITALS: Ht 180.3 cm; Wt 94.0 kg
[~2016-12-29 14:27] MED LIST changes: +LACT10SO28 PO
[2016-12-29] MEDS ORDERED: LATA2.5D3 EACHEYE (15:05)
[2016-12-29] MEDS ORDERED: ALBU8.5H8 INH (15:07)
[2016-12-29 15:08] LABS: HEMOGLOBIN 12.2 g/dL (11.7-16.4)
[2016-12-29] MEDS ORDERED: TIZA4TAB PO (15:08)
[2016-12-29 15:09] LABS: ASPARTATE AMINO TRANSFERASE 443 U/L (15-37); BLOOD UREA NITROGEN 4 mg/dL (7-18)
[2016-12-29] MEDS ORDERED: ZOLP-413 PO (15:09)
[2016-12-29] MEDS ORDERED: FURO-92 PO (15:10)
[2016-12-29] MEDS ORDERED: GABA100C PO (15:13)
[2016-12-29] MEDS ORDERED: ONDA4TAB13 SL (15:13)
[2016-12-29] MEDS ORDERED: POTA20TA6 PO (15:15)
[2016-12-29 17:20] VITALS: BP 118/68
== END 2016-12-29 17:24 | disposition home or self-care (01) ==
LOC: ED 14:39
DX: R55 Syncope and collapse (principal); R53.1 Weakness; J44.9 Chronic obstructive pulmonary disease, unspecified; I10 Essential (primary) hypertension; I25.2 Old myocardial infarction; Z90.710 Acquired absence of both cervix and uterus
CPT/HCPCS: 36415; 80053; 85025; 99284

== ENCOUNTER 2016-12-31 22:08 | Emergency (ER) | payer MEDICARE ==
[~2016-12-31] VITALS: Ht 172.7 cm; Wt 218.2 kg
[~2016-12-31 22:08] MED LIST changes: +ALBU8.5H8 INH; +FURO-92 PO; +GABA100C PO; +ONDA4TAB13 SL; +POTA20TA6 PO; +TIZA4TAB PO; +ZOLP-413 PO
[2016-12-31 22:49] LABS: HEMATOCRIT 33.3 % (34.6-47.8); HEMOGLOBIN 11.2 g/dL (11.7-16.4); WHITE BLOOD COUNT 8.6 x10^3/uL (3.4-10)
[2016-12-31 22:56] LABS: BLOOD UREA NITROGEN 9 mg/dL (7-18)
[2016-12-31 22:58] LABS: ACETAMINOPHEN < 2 mcg/mL (10-30)
[2017-01-01 01:55] VITALS: BP 110/68
[2017-01-01 02:19] LABS: DAU SCREEN DISCLAIMER
== END 2017-01-01 03:00 | disposition home or self-care (01) ==
LOC: ED 22:19
DX: F41.1 Generalized anxiety disorder (principal); F33.9 Major depressive disorder, recurrent, unspecified; J44.9 Chronic obstructive pulmonary disease, unspecified; I10 Essential (primary) hypertension; I25.2 Old myocardial infarction; Z90.710 Acquired absence of both cervix and uterus
CPT/HCPCS: 36415; 80048; 80307; 80329; 82040; 85025; 99284; G0479; G0480

== ENCOUNTER 2017-01-01 04:07 | Inpatient (IN) | payer MEDICARE ==
[~2017-01-01] VITALS: Ht 167.6 cm; Wt 87.9 kg
[2017-01-01 04:27] LABS: DAU SCREEN DISCLAIMER
[2017-01-01 05:17] LABS: ACETAMINOPHEN < 2 mcg/mL (10-30)
[2017-01-01 05:31] LABS: ASPARTATE AMINO TRANSFERASE 476 U/L (15-37); BLOOD UREA NITROGEN 8 mg/dL (7-18)
[2017-01-01 05:37] LABS: HEMATOCRIT 34.2 % (34.6-47.8); HEMOGLOBIN 11.5 g/dL (11.7-16.4); WHITE BLOOD COUNT 6.4 x10^3/uL (3.4-10)
[2017-01-01] MEDS ORDERED: DOCUSATE 100 MG CAPSULE PO PRN (09:30)
[2017-01-01] MEDS ORDERED: ONDANSETRON ODT 4 MG PO PRN (09:30)
[2017-01-01] MEDS ORDERED: BISACODYL 10 MG SUPP PR PRN (09:30)
[2017-01-01] MEDS ORDERED: OXYcodone/APAP 5/325MG TABLET PO PRN (09:30)
[2017-01-01] MEDS ORDERED: POLYETHYLENE GLYCOL 17 GM PACKET PO PRN (09:30)
[2017-01-01] MEDS ORDERED: CYANOCOBALAMIN MC SCH (11:30)
[2017-01-01 11:55] VITALS: BP 102/61
[2017-01-01] MEDS ORDERED: CYANOCOBALAMIN 1,000 MCG/ML, 1ML IM SCH (12:00)
[2017-01-01] MEDS: CALCIUM CARBONATE 500 MG TAB.CHEW PO PRN (12:04)
[2017-01-01] MEDS: ENOXAPARIN 40 MG/0.4 ML SQ SCH (12:05)
[2017-01-01 14:39] VITALS: BP 90/51
[2017-01-01] MEDS: GABAPENTIN 100 MG CAPSULE PO SCH ×2 (16:25→20:59)
[2017-01-01] MEDS: TIZANIDINE 4MG TABLET PO SCH ×2 (16:25→20:59)
[2017-01-01] MEDS: LACTULOSE 20 GM/30 ML UDC PO SCH ×2 (18:14→20:58)
[2017-01-01] MEDS: POTASSIUM CHLORIDE 20 MEQ TAB.ER.PRT PO SCH ×2 (18:14→20:58)
[2017-01-01] MEDS ORDERED: LACTULOSE 10 GM/15 ML UDC PO SCH ×2 (21:00)
[2017-01-01] MEDS: AMLODIPINE 5 MG TABLET PO SCH (21:00)
[2017-01-01 21:04] VITALS: BP 96/56
[2017-01-01] MEDS: LATANOPROST OPHTH 0.005%, 2.5ML EACHEYE SCH (22:31)
[2017-01-02 02:21] VITALS: BP 104/56
[2017-01-02 04:38] LABS: HEMOGLOBIN 11.1 g/dL (11.7-16.4); WHITE BLOOD COUNT 6.7 x10^3/uL (3.4-10)
[2017-01-02 05:07] LABS: ASPARTATE AMINO TRANSFERASE 435 U/L (15-37); BLOOD UREA NITROGEN 5 mg/dL (7-18)
[2017-01-02 05:10] LABS: TOTAL IRON BINDING CAPACITY 272 mcg/dL (250-450)
[2017-01-02 07:57] VITALS: BP 101/58
[2017-01-02] MEDS: AMLODIPINE 5 MG TABLET PO SCH ×3 (09:00→20:54)
[2017-01-02] MEDS: GABAPENTIN 100 MG CAPSULE PO SCH ×3 (09:30→21:02)
[2017-01-02] MEDS: POTASSIUM CHLORIDE 20 MEQ TAB.ER.PRT PO SCH (09:31)
[2017-01-02] MEDS: ENOXAPARIN 40 MG/0.4 ML SQ SCH (09:31)
[2017-01-02] MEDS: CITALOPRAM 20 MG TABLET PO SCH (09:31)
[2017-01-02] MEDS: FOLIC ACID 1 MG TABLET PO SCH (09:31)
[2017-01-02] MEDS: TIZANIDINE 4MG TABLET PO SCH ×3 (09:31→21:02)
[2017-01-02] MEDS: LACTULOSE 20 GM/30 ML UDC PO SCH ×3 (10:18→22:04)
[2017-01-02] MEDS: FLUTICASONE/VILANTEROL 100-25MCG/INH INH SCH (10:19)
[2017-01-02 13:10] VITALS: BP 109/63
[2017-01-02] MEDS ORDERED: MAGNESIUM SULFATE PMX 2GM/50ML 50 ML IV ONE (14:30)
[2017-01-02] MEDS: CALCIUM CARBONATE 500 MG TAB.CHEW PO PRN (15:47)
[2017-01-02 20:10] VITALS: BP 94/54
[2017-01-02] MEDS: LATANOPROST OPHTH 0.005%, 2.5ML EACHEYE SCH (21:02)
[2017-01-02] MEDS: SUCRALFATE 1 GM/10 ML UDC PO SCH (22:04)
[2017-01-03 02:21] VITALS: BP 107/62
[2017-01-03 05:04] LABS: HEMATOCRIT 34.8 % (34.6-47.8); HEMOGLOBIN 11.5 g/dL (11.7-16.4); WHITE BLOOD COUNT 6.3 x10^3/uL (3.4-10)
[2017-01-03 05:12] LABS: ASPARTATE AMINO TRANSFERASE 473 U/L (15-37); BLOOD UREA NITROGEN 3 mg/dL (7-18)
[2017-01-03 06:42] VITALS: BP 124/74
[2017-01-03] MEDS: SUCRALFATE 1 GM/10 ML UDC PO SCH ×4 (07:53→20:29)
[2017-01-03] MEDS: ENOXAPARIN 40 MG/0.4 ML SQ SCH (09:13)
[2017-01-03] MEDS: GABAPENTIN 100 MG CAPSULE PO SCH ×3 (09:13→20:29)
[2017-01-03] MEDS: LACTULOSE 20 GM/30 ML UDC PO SCH ×3 (09:13→20:29)
[2017-01-03] MEDS: TIZANIDINE 4MG TABLET PO SCH ×3 (09:13→20:29)
[2017-01-03] MEDS: FLUTICASONE/VILANTEROL 100-25MCG/INH INH SCH (09:13)
[2017-01-03] MEDS: FOLIC ACID 1 MG TABLET PO SCH (09:13)
[2017-01-03] MEDS: CITALOPRAM 20 MG TABLET PO SCH (09:13)
[2017-01-03] MEDS: AMLODIPINE 5 MG TABLET PO SCH ×2 (09:13→20:55)
[2017-01-03 12:59] VITALS: BP 99/52
[2017-01-03] MEDS: CALCIUM CARBONATE 500 MG TAB.CHEW PO PRN (14:31)
[2017-01-03] MEDS: LORazepam 1MG TABLET PO PRN (16:24)
[2017-01-03] MEDS ORDERED: OXYcodone/APAP 5/325MG TABLET PO PRN (17:30)
[2017-01-03 19:05] VITALS: BP 109/69
[2017-01-03] MEDS: LATANOPROST OPHTH 0.005%, 2.5ML EACHEYE SCH (20:29)
[2017-01-04 01:42] VITALS: BP 130/81
[2017-01-04 05:28] LABS: ASPARTATE AMINO TRANSFERASE 533 U/L (15-37); BLOOD UREA NITROGEN 3 mg/dL (7-18)
[2017-01-04] MEDS: SUCRALFATE 1 GM/10 ML UDC PO SCH ×4 (07:32→21:01)
[2017-01-04 07:56] VITALS: BP 98/62
[2017-01-04] MEDS: FLUTICASONE/VILANTEROL 100-25MCG/INH INH SCH (08:29)
[2017-01-04] MEDS: CITALOPRAM 20 MG TABLET PO SCH (08:30)
[2017-01-04] MEDS: AMLODIPINE 5 MG TABLET PO SCH ×2 (08:31→21:01)
[2017-01-04] MEDS: GABAPENTIN 100 MG CAPSULE PO SCH ×3 (08:31→21:01)
[2017-01-04] MEDS: FOLIC ACID 1 MG TABLET PO SCH (08:31)
[2017-01-04] MEDS: TIZANIDINE 4MG TABLET PO SCH ×3 (08:31→21:01)
[2017-01-04] MEDS: LACTULOSE 20 GM/30 ML UDC PO SCH ×3 (08:31→21:01)
[2017-01-04] MEDS: ENOXAPARIN 40 MG/0.4 ML SQ SCH (08:32)
[2017-01-04] MEDS: LORazepam 1MG TABLET PO PRN ×2 (08:42→17:15)
[2017-01-04 13:02] VITALS: BP 127/77
[2017-01-04 20:12] VITALS: BP 117/66
[2017-01-04] MEDS: LATANOPROST OPHTH 0.005%, 2.5ML EACHEYE SCH (21:01)
[2017-01-05 04:15] VITALS: BP 133/76
[2017-01-05 05:39] LABS: ASPARTATE AMINO TRANSFERASE 546 U/L (15-37); BLOOD UREA NITROGEN 3 mg/dL (7-18)
[2017-01-05 06:52] VITALS: BP 127/70
[2017-01-05] MEDS: FLUTICASONE/VILANTEROL 100-25MCG/INH INH SCH (08:37)
[2017-01-05] MEDS: LACTULOSE 20 GM/30 ML UDC PO SCH ×3 (08:37→20:48)
[2017-01-05] MEDS: TIZANIDINE 4MG TABLET PO SCH ×3 (08:37→20:47)
[2017-01-05] MEDS: GABAPENTIN 100 MG CAPSULE PO SCH ×3 (08:37→20:47)
[2017-01-05] MEDS: SUCRALFATE 1 GM/10 ML UDC PO SCH ×4 (08:38→20:48)
[2017-01-05] MEDS: FOLIC ACID 1 MG TABLET PO SCH (08:38)
[2017-01-05] MEDS: ENOXAPARIN 40 MG/0.4 ML SQ SCH (08:38)
[2017-01-05] MEDS: CITALOPRAM 20 MG TABLET PO SCH (08:38)
[2017-01-05] MEDS: AMLODIPINE 5 MG TABLET PO SCH ×2 (08:38→20:49)
[2017-01-05 14:38] VITALS: BP 107/68
[2017-01-05] MEDS: LORazepam 1MG TABLET PO PRN (17:26)
[2017-01-05 19:33] VITALS: BP 137/81
[2017-01-05] MEDS: CEFDINIR 300 MG CAPSULE PO SCH (20:47)
[2017-01-05] MEDS: LATANOPROST OPHTH 0.005%, 2.5ML EACHEYE SCH (20:47)
[2017-01-06] VITALS (12 sets, daily range): BP systolic 79–119; BP diastolic 51–73
[2017-01-06 05:31] LABS: HEMATOCRIT 41.2 % (34.6-47.8); HEMOGLOBIN 13.6 g/dL (11.7-16.4); WHITE BLOOD COUNT 8.5 x10^3/uL (3.4-10)
[2017-01-06 05:52] LABS: ASPARTATE AMINO TRANSFERASE 536 U/L (15-37); BLOOD UREA NITROGEN 4 mg/dL (7-18)
[2017-01-06] MEDS ORDERED: SODIUM CHLORIDE 0.9%, 500ML IVBOLUS ONE (09:00)
[2017-01-06] MEDS: ENOXAPARIN 40 MG/0.4 ML SQ SCH (09:02)
[2017-01-06] MEDS: SUCRALFATE 1 GM/10 ML UDC PO SCH ×4 (09:02→19:56)
[2017-01-06] MEDS: FLUTICASONE/VILANTEROL 100-25MCG/INH INH SCH (09:02)
[2017-01-06] MEDS: CITALOPRAM 20 MG TABLET PO SCH (09:04)
[2017-01-06] MEDS: FOLIC ACID 1 MG TABLET PO SCH (09:04)
[2017-01-06] MEDS: GABAPENTIN 100 MG CAPSULE PO SCH ×3 (09:05→19:56)
[2017-01-06] MEDS: LACTULOSE 20 GM/30 ML UDC PO SCH ×3 (09:05→19:56)
[2017-01-06] MEDS: CEFDINIR 300 MG CAPSULE PO SCH (09:05)
[2017-01-06] MEDS ORDERED: AMOXICILLIN/CLAV 875-125MG TABLET PO SCH (10:30)
[2017-01-06] MEDS: LORazepam 1MG TABLET PO PRN (16:58)
[2017-01-06] MEDS: AMPICILLIN 500MG CAPSULE PO SCH ×2 (17:00→19:56)
[2017-01-06] MEDS: LATANOPROST OPHTH 0.005%, 2.5ML EACHEYE SCH (19:56)
[2017-01-07] VITALS (9 sets, daily range): BP systolic 83–127; BP diastolic 50–80
[2017-01-07 05:48] LABS: HEMATOCRIT 37.8 % (34.6-47.8); HEMOGLOBIN 12.6 g/dL (11.7-16.4); WHITE BLOOD COUNT 7.2 x10^3/uL (3.4-10)
[2017-01-07 06:04] LABS: BLOOD UREA NITROGEN 7 mg/dL (7-18)
[2017-01-07 06:07] LABS: ASPARTATE AMINO TRANSFERASE 656 U/L (15-37)
[2017-01-07] MEDS: AMPICILLIN 500MG CAPSULE PO SCH ×4 (06:18→22:38)
[2017-01-07] MEDS: FOLIC ACID 1 MG TABLET PO SCH (09:00)
[2017-01-07] MEDS: ENOXAPARIN 40 MG/0.4 ML SQ SCH (09:57)
[2017-01-07] MEDS: GABAPENTIN 100 MG CAPSULE PO SCH ×3 (09:58→22:39)
[2017-01-07] MEDS: CITALOPRAM 20 MG TABLET PO SCH (09:58)
[2017-01-07] MEDS: LACTULOSE 20 GM/30 ML UDC PO SCH ×3 (09:58→22:39)
[2017-01-07] MEDS: SUCRALFATE 1 GM/10 ML UDC PO SCH ×4 (09:58→22:39)
[2017-01-07] MEDS: FLUTICASONE/VILANTEROL 100-25MCG/INH INH SCH (09:59)
[2017-01-07] MEDS: LORazepam 1MG TABLET PO PRN ×2 (10:00→15:54)
[2017-01-07] MEDS: QUETIAPINE 25MG TABLET PO SCH ×3 (11:49→15:56)
[2017-01-07] MEDS: MIDODRINE 5 MG TABLET PO SCH ×4 (11:49→22:58)
[2017-01-08] MEDS: QUETIAPINE 25MG TABLET PO SCH ×3 (00:18→22:57)
[2017-01-08] MEDS: LATANOPROST OPHTH 0.005%, 2.5ML EACHEYE SCH ×2 (00:18→21:02)
[2017-01-08 01:48] VITALS: BP 102/66
[2017-01-08 05:41] LABS: BLOOD UREA NITROGEN 6 mg/dL (7-18)
[2017-01-08 05:44] LABS: ASPARTATE AMINO TRANSFERASE 619 U/L (15-37)
[2017-01-08] MEDS: AMPICILLIN 500MG CAPSULE PO SCH ×4 (06:18→21:02)
[2017-01-08 07:39] VITALS: BP_SYST 115; BP_SYST 123; BP_SYST 125; BP_DIAS 63; BP_DIAS 75; BP_DIAS 77
[2017-01-08] MEDS: LACTULOSE 20 GM/30 ML UDC PO SCH ×3 (08:19→21:03)
[2017-01-08] MEDS: SUCRALFATE 1 GM/10 ML UDC PO SCH ×4 (08:19→21:03)
[2017-01-08] MEDS: GABAPENTIN 100 MG CAPSULE PO SCH ×3 (08:20→21:02)
[2017-01-08] MEDS: FLUTICASONE/VILANTEROL 100-25MCG/INH INH SCH (08:20)
[2017-01-08] MEDS: CITALOPRAM 20 MG TABLET PO SCH (08:20)
[2017-01-08] MEDS: MIDODRINE 5 MG TABLET PO SCH ×3 (08:20→21:03)
[2017-01-08] MEDS: FOLIC ACID 1 MG TABLET PO SCH (08:21)
[2017-01-08] MEDS: LORazepam 1MG TABLET PO PRN ×3 (10:16→22:57)
[2017-01-08] MEDS: ENOXAPARIN 40 MG/0.4 ML SQ SCH (10:17)
[2017-01-08 12:36] VITALS: BP 114/68
[2017-01-08 20:00] VITALS: BP 121/71
[2017-01-08 20:05] VITALS: BP 142/81
[2017-01-08 20:10] VITALS: BP 124/82
[2017-01-08] MEDS: CALCIUM CARBONATE 500 MG TAB.CHEW PO PRN (21:03)
[2017-01-09 00:30] VITALS: BP 131/79
[2017-01-09 00:35] VITALS: BP 145/78
[2017-01-09 00:40] VITALS: BP 123/77
[2017-01-09] MEDS ORDERED: PANTOPRAZOLE 40 MG IV IVPush SCH (03:00)
[2017-01-09 04:48] LABS: ASPARTATE AMINO TRANSFERASE 424 U/L (15-37); BLOOD UREA NITROGEN 7 mg/dL (7-18)
[2017-01-09] MEDS ORDERED: FLU VACC QS2016-17 (36MOS+)UP/PF 0.5 ML IM-VACC ONE (05:00)
[2017-01-09] MEDS: AMPICILLIN 500MG CAPSULE PO SCH ×4 (06:31→21:53)
[2017-01-09 07:08] VITALS: BP_SYST 130; BP_SYST 131; BP_SYST 132; BP_DIAS 71; BP_DIAS 76; BP_DIAS 78
[2017-01-09] MEDS: SUCRALFATE 1 GM/10 ML UDC PO SCH ×4 (08:43→21:53)
[2017-01-09] MEDS: CITALOPRAM 20 MG TABLET PO SCH (08:44)
[2017-01-09] MEDS: QUETIAPINE 25MG TABLET PO SCH ×2 (08:44→21:53)
[2017-01-09] MEDS: LACTULOSE 20 GM/30 ML UDC PO SCH ×3 (08:45→21:53)
[2017-01-09] MEDS: MIDODRINE 5 MG TABLET PO SCH ×3 (08:45→21:53)
[2017-01-09] MEDS: GABAPENTIN 100 MG CAPSULE PO SCH ×3 (08:45→21:53)
[2017-01-09] MEDS: FOLIC ACID 1 MG TABLET PO SCH (08:45)
[2017-01-09] MEDS: FLUTICASONE/VILANTEROL 100-25MCG/INH INH SCH (08:45)
[2017-01-09] MEDS: LORazepam 1MG TABLET PO PRN ×3 (08:52→23:32)
[2017-01-09] MEDS: OMEPRAZOLE 20 MG CAPSULE.DR PO SCH (11:46)
[2017-01-09] MEDS: ENOXAPARIN 40 MG/0.4 ML SQ SCH (11:48)
[2017-01-09 13:07] VITALS: BP 147/76
[2017-01-09 21:37] VITALS: BP_SYST 135; BP_SYST 143; BP_SYST 145; BP_DIAS 79; BP_DIAS 82; BP_DIAS 83
[2017-01-09] MEDS: LATANOPROST OPHTH 0.005%, 2.5ML EACHEYE SCH (21:53)
[2017-01-10 01:55] VITALS: BP 143/72
[2017-01-10] MEDS: AMPICILLIN 500MG CAPSULE PO SCH ×4 (06:07→21:40)
[2017-01-10 07:29] VITALS: BP 151/80
[2017-01-10] MEDS: LACTULOSE 20 GM/30 ML UDC PO SCH ×3 (07:39→21:39)
[2017-01-10] MEDS: SUCRALFATE 1 GM/10 ML UDC PO SCH ×4 (07:39→21:39)
[2017-01-10] MEDS: FLUTICASONE/VILANTEROL 100-25MCG/INH INH SCH (07:39)
[2017-01-10] MEDS: QUETIAPINE 25MG TABLET PO SCH ×2 (07:41→21:40)
[2017-01-10] MEDS: OMEPRAZOLE 20 MG CAPSULE.DR PO SCH (07:42)
[2017-01-10] MEDS: FOLIC ACID 1 MG TABLET PO SCH (07:42)
[2017-01-10] MEDS: GABAPENTIN 100 MG CAPSULE PO SCH ×3 (07:42→21:40)
[2017-01-10] MEDS: CITALOPRAM 20 MG TABLET PO SCH (07:42)
[2017-01-10] MEDS: MIDODRINE 5 MG TABLET PO SCH ×2 (07:43→21:41)
[2017-01-10] MEDS: LORazepam 1MG TABLET PO PRN ×2 (07:50→16:35)
[2017-01-10] MEDS: ENOXAPARIN 40 MG/0.4 ML SQ SCH (11:46)
[2017-01-10 14:00] VITALS: BP 142/72
[2017-01-10 15:43] VITALS: BP 137/82
[2017-01-10 19:20] VITALS: BP 129/76
[2017-01-10] MEDS: LATANOPROST OPHTH 0.005%, 2.5ML EACHEYE SCH (21:40)
[2017-01-11] MEDS: AMPICILLIN 500MG CAPSULE PO SCH ×2 (06:19→11:56)
[2017-01-11] MEDS: OMEPRAZOLE 20 MG CAPSULE.DR PO SCH (07:59)
[2017-01-11] MEDS: SUCRALFATE 1 GM/10 ML UDC PO SCH ×2 (07:59→11:56)
[2017-01-11 08:00] VITALS: BP 174/76
[2017-01-11] MEDS: LACTULOSE 20 GM/30 ML UDC PO SCH (08:18)
[2017-01-11] MEDS: GABAPENTIN 100 MG CAPSULE PO SCH (08:18)
[2017-01-11] MEDS: CITALOPRAM 20 MG TABLET PO SCH (08:18)
[2017-01-11] MEDS: FOLIC ACID 1 MG TABLET PO SCH (08:18)
[2017-01-11] MEDS: LORazepam 1MG TABLET PO PRN ×2 (08:19→12:18)
[2017-01-11] MEDS: MIDODRINE 5 MG TABLET PO SCH (08:19)
[2017-01-11 08:36] LABS: BLOOD UREA NITROGEN 10 mg/dL (7-18)
[2017-01-11 08:41] LABS: ASPARTATE AMINO TRANSFERASE 239 U/L (15-37)
[2017-01-11] MEDS: FLUTICASONE/VILANTEROL 100-25MCG/INH INH SCH (08:49)
[2017-01-11] MEDS: QUETIAPINE 25MG TABLET PO SCH (08:49)
[2017-01-11] MEDS: ENOXAPARIN 40 MG/0.4 ML SQ SCH (10:00)
== END 2017-01-11 12:49 | DRG 441 ==
LOC: ED 06:48 → EDIP 06:54 → UNDOADMOB 06:54 → OBSVTOIN 09:02 → INTOOBSV 09:02 → EDIP 11:19 → 4NOR 11:19 → 4WST 01-06 11:28 → 4EST 01-09 19:45 → 4WST 01-09 19:45 → 4EST 01-09 21:23 → 4WST 01-09 21:23 → 3E 01-10 14:48 → 4WST 01-10 14:48 → UNDODISIN 01-11 12:49
PROVIDERS: ADMIT Family Medicine; ATTEND Internal Medicine
DX: K72.90 Hepatic failure, unspecified without coma (principal); E43 Unspecified severe protein-calorie malnutrition; K73.9 Chronic hepatitis, unspecified; I10 Essential (primary) hypertension; D63.8 Anemia in other chronic diseases classified elsewhere; E11.9 Type 2 diabetes mellitus without complications; N39.0 Urinary tract infection, site not specified; J44.9 Chronic obstructive pulmonary disease, unspecified; E78.5 Hyperlipidemia, unspecified; E83.42 Hypomagnesemia; R35.0 Frequency of micturition; R74.0 Nonspecific elevation of levels of transaminase and lactic acid dehydrogenase [LDH]; K74.60 Unspecified cirrhosis of liver; F32.9 Major depressive disorder, single episode, unspecified; F41.1 Generalized anxiety disorder; I95.1 Orthostatic hypotension; K58.1 Irritable bowel syndrome with constipation; E87.6 Hypokalemia; Z91.14 Patient's other noncompliance with medication regimen; I25.2 Old myocardial infarction; Z90.49 Acquired absence of other specified parts of digestive tract; Z98.51 Tubal ligation status; Z90.710 Acquired absence of both cervix and uterus; S61.511A Laceration without foreign body of right wrist, initial encounter; S61.512A Laceration without foreign body of left wrist, initial encounter; Y93.89 Activity, other specified; X78.8XXA Intentional self-harm by other sharp object, initial encounter; Y92.89 Other specified places as the place of occurrence of the external cause; Y99.8 Other external cause status
CPT/HCPCS: 36415; 70450; 80053; 80074; 80307; 80329; 81001; 82140; 83540; 83550; 83735; 85025; 85610; 87077; 87086; 87186; 90686; 93005; 93306; 96372; G0378; J1650; Q0162; C9113; G0479; G0480; J3420; J3475; J7040

== ENCOUNTER 2017-01-22 09:20 | Observation (INO) | payer MEDICARE ==
[~2017-01-22] VITALS: Ht 170.2 cm; Wt 75.0 kg
[2017-01-22] MEDS ORDERED: PLEASE ENTER HEIGHT AND WEIGHT MC SCH (09:30)
[2017-01-22] MEDS ORDERED: LORazepam 1MG TABLET PO ONE (09:30)
[2017-01-22] MEDS ORDERED: LORazepam 1MG TABLET ONE (09:40)
[2017-01-22 09:49] LABS: DAU SCREEN DISCLAIMER
[2017-01-22 09:52] LABS: HEMATOCRIT 36.6 % (34.6-47.8); HEMOGLOBIN 12.4 g/dL (11.7-16.4)
[2017-01-22 10:05] LABS: ASPARTATE AMINO TRANSFERASE 465 U/L (15-37); BLOOD UREA NITROGEN 6 mg/dL (7-18)
[2017-01-22 10:07] LABS: ACETAMINOPHEN < 2 mcg/mL (10-30)
[2017-01-22] MEDS ORDERED: CITALOPRAM 20 MG TABLET PO SCH (11:30)
[2017-01-22] MEDS ORDERED: GABAPENTIN 100 MG CAPSULE PO SCH (11:30)
[2017-01-22] MEDS ORDERED: LACTULOSE 10 GM/15 ML UDC PO SCH (11:30)
[2017-01-22] MEDS ORDERED: AMLODIPINE 5 MG TABLET PO SCH (11:30)
[2017-01-22] MEDS ORDERED: BISACODYL 10 MG SUPP PR PRN (14:30)
[2017-01-22] MEDS ORDERED: DOCUSATE 100 MG CAPSULE PO PRN (14:30)
[2017-01-22] MEDS ORDERED: DIPHENHYDRAMINE 50 MG CAPSULE PO PRN (14:30)
[2017-01-22] MEDS ORDERED: ONDANSETRON ODT 4 MG PO PRN ×2 (14:30)
[2017-01-22] MEDS ORDERED: ALBUTEROL SULFATE 2.5 MG/3 ML NPPB PRN (15:00)
[2017-01-22 15:14] VITALS: BP 158/84
[2017-01-22] MEDS: TIZANIDINE 4MG TABLET PO SCH ×2 (15:37→21:49)
[2017-01-22] MEDS: LATANOPROST OPHTH 0.005%, 2.5ML EACHEYE SCH (21:49)
[2017-01-22] MEDS: LACTULOSE 10 GM/15 ML UDC PO SCH (22:21)
[2017-01-23 05:32] LABS: HEMATOCRIT 31.3 % (34.6-47.8); HEMOGLOBIN 10.6 g/dL (11.7-16.4); WHITE BLOOD COUNT 5.1 x10^3/uL (3.4-10)
[2017-01-23 05:43] LABS: BLOOD UREA NITROGEN 6 mg/dL (7-18)
[2017-01-23] MEDS: ASCORBIC ACID 500 MG TABLET PO SCH (08:12)
[2017-01-23 08:13] VITALS: BP 128/80
[2017-01-23] MEDS: TIZANIDINE 4MG TABLET PO SCH ×3 (08:13→20:29)
[2017-01-23] MEDS: LACTULOSE 10 GM/15 ML UDC PO SCH ×2 (08:13→20:29)
[2017-01-23] MEDS: OMEPRAZOLE 20 MG CAPSULE.DR PO SCH (08:17)
[2017-01-23] MEDS: FOLIC ACID 1 MG TABLET PO SCH (08:18)
[2017-01-23] MEDS: FLUTICASONE/VILANTEROL 100-25MCG/INH INH SCH (10:02)
[2017-01-23 19:42] VITALS: BP 110/71
[2017-01-23] MEDS: LATANOPROST OPHTH 0.005%, 2.5ML EACHEYE SCH (20:29)
[2017-01-24] MEDS: OMEPRAZOLE 20 MG CAPSULE.DR PO SCH (07:57)
[2017-01-24 08:49] VITALS: BP 132/74
[2017-01-24] MEDS: FLUTICASONE/VILANTEROL 100-25MCG/INH INH SCH (08:53)
[2017-01-24] MEDS: TIZANIDINE 4MG TABLET PO SCH ×3 (08:54→21:47)
[2017-01-24] MEDS: FOLIC ACID 1 MG TABLET PO SCH (08:54)
[2017-01-24] MEDS: ASCORBIC ACID 500 MG TABLET PO SCH (08:55)
[2017-01-24] MEDS: LACTULOSE 10 GM/15 ML UDC PO SCH ×2 (08:56→21:47)
[2017-01-24 19:40] VITALS: BP 101/60
[2017-01-24] MEDS: LATANOPROST OPHTH 0.005%, 2.5ML EACHEYE SCH (21:47)
[2017-01-25] MEDS: OMEPRAZOLE 20 MG CAPSULE.DR PO SCH (07:38)
[2017-01-25 07:51] VITALS: BP 138/76
[2017-01-25] MEDS: FOLIC ACID 1 MG TABLET PO SCH (08:23)
[2017-01-25] MEDS: ASCORBIC ACID 500 MG TABLET PO SCH (08:23)
[2017-01-25] MEDS: LACTULOSE 10 GM/15 ML UDC PO SCH ×2 (08:24→20:11)
[2017-01-25] MEDS: FLUTICASONE/VILANTEROL 100-25MCG/INH INH SCH (08:25)
[2017-01-25] MEDS: TIZANIDINE 4MG TABLET PO SCH ×3 (08:28→20:11)
[2017-01-25] MEDS: QUETIAPINE 25MG TABLET PO PRN ×2 (11:01→16:23)
[2017-01-25 19:24] VITALS: BP 94/57
[2017-01-25] MEDS: LATANOPROST OPHTH 0.005%, 2.5ML EACHEYE SCH (20:11)
[2017-01-26] MEDS: QUETIAPINE 25MG TABLET PO PRN (04:22)
[2017-01-26 07:17] VITALS: BP 117/67
[2017-01-26] MEDS: TIZANIDINE 4MG TABLET PO SCH ×3 (08:18→20:20)
[2017-01-26] MEDS: OMEPRAZOLE 20 MG CAPSULE.DR PO SCH (08:18)
[2017-01-26] MEDS: FOLIC ACID 1 MG TABLET PO SCH (08:18)
[2017-01-26] MEDS: ASCORBIC ACID 500 MG TABLET PO SCH (08:18)
[2017-01-26] MEDS: LACTULOSE 10 GM/15 ML UDC PO SCH ×2 (08:19→20:21)
[2017-01-26] MEDS: FLUTICASONE/VILANTEROL 100-25MCG/INH INH SCH (08:19)
[2017-01-26] MEDS: IBUPROFEN 200 MG TABLET PO PRN (15:49)
[2017-01-26 19:57] VITALS: BP 102/64
[2017-01-26] MEDS: LATANOPROST OPHTH 0.005%, 2.5ML EACHEYE SCH (20:21)
[2017-01-27 08:00] VITALS: BP 114/65
[2017-01-27] MEDS: LACTULOSE 10 GM/15 ML UDC PO SCH ×2 (09:28→20:38)
[2017-01-27] MEDS: TIZANIDINE 4MG TABLET PO SCH ×3 (09:29→20:38)
[2017-01-27] MEDS: OMEPRAZOLE 20 MG CAPSULE.DR PO SCH (09:29)
[2017-01-27] MEDS: FLUTICASONE/VILANTEROL 100-25MCG/INH INH SCH (09:29)
[2017-01-27] MEDS: FOLIC ACID 1 MG TABLET PO SCH (09:29)
[2017-01-27] MEDS: ASCORBIC ACID 500 MG TABLET PO SCH (09:29)
[2017-01-27] MEDS: QUETIAPINE 25MG TABLET PO PRN (12:12)
[2017-01-27] MEDS: IBUPROFEN 200 MG TABLET PO PRN (16:51)
[2017-01-27 20:00] VITALS: BP 113/61
[2017-01-27] MEDS: LATANOPROST OPHTH 0.005%, 2.5ML EACHEYE SCH (20:38)
[2017-01-28 07:30] VITALS: BP 93/59
[2017-01-28] MEDS: ASCORBIC ACID 500 MG TABLET PO SCH (08:34)
[2017-01-28] MEDS: OMEPRAZOLE 20 MG CAPSULE.DR PO SCH (08:34)
[2017-01-28] MEDS: TIZANIDINE 4MG TABLET PO SCH ×3 (08:35→20:16)
[2017-01-28] MEDS: FOLIC ACID 1 MG TABLET PO SCH (08:35)
[2017-01-28] MEDS: QUETIAPINE 25MG TABLET PO PRN ×2 (08:35→20:16)
[2017-01-28] MEDS: FLUTICASONE/VILANTEROL 100-25MCG/INH INH SCH (08:40)
[2017-01-28] MEDS: LACTULOSE 10 GM/15 ML UDC PO SCH ×2 (08:41→20:16)
[2017-01-28 20:00] VITALS: BP 119/68
[2017-01-28] MEDS: LATANOPROST OPHTH 0.005%, 2.5ML EACHEYE SCH (20:16)
[2017-01-29 07:27] VITALS: BP 109/68
[2017-01-29] MEDS: ASCORBIC ACID 500 MG TABLET PO SCH (08:31)
[2017-01-29] MEDS: TIZANIDINE 4MG TABLET PO SCH ×3 (08:31→22:03)
[2017-01-29] MEDS: FOLIC ACID 1 MG TABLET PO SCH (08:32)
[2017-01-29] MEDS: OMEPRAZOLE 20 MG CAPSULE.DR PO SCH (08:32)
[2017-01-29] MEDS: LACTULOSE 10 GM/15 ML UDC PO SCH ×2 (08:32→22:03)
[2017-01-29] MEDS: FLUTICASONE/VILANTEROL 100-25MCG/INH INH SCH (08:57)
[2017-01-29] MEDS: GABAPENTIN 100 MG CAPSULE PO SCH ×2 (15:04→22:03)
[2017-01-29] MEDS ORDERED: LOPERAMIDE 2 MG CAPSULE ONE (17:24)
[2017-01-29] MEDS ORDERED: LOPERAMIDE 1 MG/5 ML, 10ML UDC PO ONE (17:30)
[2017-01-29 19:44] VITALS: BP 116/71
[2017-01-29] MEDS: LATANOPROST OPHTH 0.005%, 2.5ML EACHEYE SCH (22:03)
[2017-01-29] MEDS: TEMAZEPAM 15 MG CAPSULE PO PRN (22:04)
[2017-01-30 08:10] VITALS: BP 98/62
[2017-01-30] MEDS: FOLIC ACID 1 MG TABLET PO SCH (08:11)
[2017-01-30] MEDS: GABAPENTIN 100 MG CAPSULE PO SCH ×3 (08:11→20:58)
[2017-01-30] MEDS: ASCORBIC ACID 500 MG TABLET PO SCH (08:12)
[2017-01-30] MEDS: OMEPRAZOLE 20 MG CAPSULE.DR PO SCH (08:12)
[2017-01-30] MEDS: TIZANIDINE 4MG TABLET PO SCH ×3 (08:13→20:58)
[2017-01-30] MEDS: FLUTICASONE/VILANTEROL 100-25MCG/INH INH SCH (08:13)
[2017-01-30] MEDS: LACTULOSE 10 GM/15 ML UDC PO SCH ×2 (08:22→20:57)
[2017-01-30 12:08] LABS: HEMATOCRIT 35.5 % (34.6-47.8); HEMOGLOBIN 11.8 g/dL (11.7-16.4)
[2017-01-30 12:14] LABS: BLOOD UREA NITROGEN 10 mg/dL (7-18)
[2017-01-30] MEDS: LATANOPROST OPHTH 0.005%, 2.5ML EACHEYE SCH (20:57)
[2017-01-30] MEDS: TEMAZEPAM 15 MG CAPSULE PO PRN (20:58)
[2017-01-30 21:10] VITALS: BP 92/61
[2017-01-31] MEDS: LOPERAMIDE 2 MG CAPSULE PO PRN ×4 (04:02→16:07)
[2017-01-31 05:35] LABS: HEMOGLOBIN 12.6 g/dL (11.7-16.4); WHITE BLOOD COUNT 7.7 x10^3/uL (3.4-10)
[2017-01-31 05:47] LABS: BLOOD UREA NITROGEN 7 mg/dL (7-18)
[2017-01-31 07:22] VITALS: BP 107/62
[2017-01-31] MEDS: ASCORBIC ACID 500 MG TABLET PO SCH (08:10)
[2017-01-31] MEDS: TIZANIDINE 4MG TABLET PO SCH ×3 (08:11→21:06)
[2017-01-31] MEDS: GABAPENTIN 100 MG CAPSULE PO SCH ×2 (08:11→16:08)
[2017-01-31] MEDS: OMEPRAZOLE 20 MG CAPSULE.DR PO SCH (08:11)
[2017-01-31] MEDS: FLUTICASONE/VILANTEROL 100-25MCG/INH INH SCH (08:14)
[2017-01-31] MEDS: LACTULOSE 10 GM/15 ML UDC PO SCH ×2 (08:14→21:00)
[2017-01-31] MEDS: FOLIC ACID 1 MG TABLET PO SCH (08:22)
[2017-01-31] MEDS ORDERED: CYANOCOBALAMIN 1,000 MCG/ML, 1ML IM SCH (14:00)
[2017-01-31 19:25] VITALS: BP 106/65
[2017-01-31] MEDS: LATANOPROST OPHTH 0.005%, 2.5ML EACHEYE SCH (21:07)
[2017-01-31] MEDS: TEMAZEPAM 15 MG CAPSULE PO PRN (21:41)
[2017-02-01 05:46] LABS: HEMATOCRIT 35.5 % (34.6-47.8); HEMOGLOBIN 11.8 g/dL (11.7-16.4)
[2017-02-01 05:58] LABS: BLOOD UREA NITROGEN 8 mg/dL (7-18)
[2017-02-01 08:00] VITALS: BP 92/56
[2017-02-01] MEDS: FLUTICASONE/VILANTEROL 100-25MCG/INH INH SCH (09:00)
[2017-02-01] MEDS: LACTULOSE 10 GM/15 ML UDC PO SCH ×2 (09:00→20:48)
[2017-02-01] MEDS: OMEPRAZOLE 20 MG CAPSULE.DR PO SCH (09:22)
[2017-02-01] MEDS: FOLIC ACID 1 MG TABLET PO SCH (09:22)
[2017-02-01] MEDS: TIZANIDINE 4MG TABLET PO SCH ×3 (09:23→20:48)
[2017-02-01] MEDS: ASCORBIC ACID 500 MG TABLET PO SCH (09:23)
[2017-02-01] MEDS: QUETIAPINE 25MG TABLET PO PRN (17:44)
[2017-02-01 20:14] VITALS: BP 115/87
[2017-02-01] MEDS: TEMAZEPAM 15 MG CAPSULE PO PRN (20:48)
[2017-02-01] MEDS: LATANOPROST OPHTH 0.005%, 2.5ML EACHEYE SCH (20:48)
[2017-02-02 06:02] LABS: HEMATOCRIT 33.4 % (34.6-47.8); HEMOGLOBIN 11.2 g/dL (11.7-16.4); WHITE BLOOD COUNT 6.1 x10^3/uL (3.4-10)
[2017-02-02 06:27] LABS: BLOOD UREA NITROGEN 7 mg/dL (7-18)
[2017-02-02 07:08] VITALS: BP_SYST 84; BP_SYST 92; BP_DIAS 50; BP_DIAS 59
[2017-02-02] MEDS: FOLIC ACID 1 MG TABLET PO SCH (07:28)
[2017-02-02] MEDS: TIZANIDINE 4MG TABLET PO SCH ×3 (07:28→20:16)
[2017-02-02] MEDS: OMEPRAZOLE 20 MG CAPSULE.DR PO SCH (07:28)
[2017-02-02] MEDS: ASCORBIC ACID 500 MG TABLET PO SCH (07:29)
[2017-02-02] MEDS: LACTULOSE 10 GM/15 ML UDC PO SCH ×2 (07:29→19:37)
[2017-02-02] MEDS: FLUTICASONE/VILANTEROL 100-25MCG/INH INH SCH (07:29)
[2017-02-02] MEDS: QUETIAPINE 25MG TABLET PO PRN ×3 (08:17→17:54)
[2017-02-02] MEDS: NEOSPORIN OINT, 15GM TP SCH ×2 (09:00→20:16)
[2017-02-02] MEDS: IBUPROFEN 200 MG TABLET PO PRN (11:45)
[2017-02-02 19:32] VITALS: BP 96/58
[2017-02-02] MEDS: LATANOPROST OPHTH 0.005%, 2.5ML EACHEYE SCH (20:16)
[2017-02-02] MEDS: TEMAZEPAM 15 MG CAPSULE PO PRN (20:16)
[2017-02-03 06:00] LABS: HEMATOCRIT 34.6 % (34.6-47.8); HEMOGLOBIN 11.6 g/dL (11.7-16.4); WHITE BLOOD COUNT 6.8 x10^3/uL (3.4-10)
[2017-02-03 06:20] LABS: BLOOD UREA NITROGEN 7 mg/dL (7-18)
[2017-02-03 08:00] VITALS: BP 100/60
[2017-02-03] MEDS: NEOSPORIN OINT, 15GM TP SCH (08:49)
[2017-02-03] MEDS: FLUTICASONE/VILANTEROL 100-25MCG/INH INH SCH (08:49)
[2017-02-03] MEDS: TIZANIDINE 4MG TABLET PO SCH (08:50)
[2017-02-03] MEDS: ASCORBIC ACID 500 MG TABLET PO SCH (08:50)
[2017-02-03] MEDS: OMEPRAZOLE 20 MG CAPSULE.DR PO SCH (08:50)
[2017-02-03] MEDS: QUETIAPINE 25MG TABLET PO PRN (08:50)
[2017-02-03] MEDS: FOLIC ACID 1 MG TABLET PO SCH (08:50)
[2017-02-03] MEDS: LACTULOSE 10 GM/15 ML UDC PO SCH (09:00)
[2017-02-03] MEDS ORDERED: LACTULOSE 20 GM/30 ML UDC ONE (09:02)
== END 2017-02-03 13:47 | disposition home or self-care (01) ==
LOC: ED 09:31 → EDIP 11:27 → 3E 14:48
PROVIDERS: ADMIT Family Medicine; ATTEND Family Medicine
DX: T14.91XA Suicide attempt, initial encounter (principal); F33.2 Major depressive disorder, recurrent severe without psychotic features; I10 Essential (primary) hypertension; J44.9 Chronic obstructive pulmonary disease, unspecified; K58.9 Irritable bowel syndrome, unspecified; K70.30 Alcoholic cirrhosis of liver without ascites; F41.1 Generalized anxiety disorder; E78.00 Pure hypercholesterolemia, unspecified; E78.5 Hyperlipidemia, unspecified; F10.988 Alcohol use, unspecified with other alcohol-induced disorder; F19.959 Other psychoactive substance use, unspecified with psychoactive substance-induced psychotic disorder, unspecified; Y92.89 Other specified places as the place of occurrence of the external cause; Z59.0 Homelessness
CPT/HCPCS: 36415; 80048; 80053; 80307; 80329; 81003; 82140; 84439; 84443; 85025; 87046; 87324; 87899; 96372; 99285; G0378; J3420; Q0162; G0479; G0480

== ENCOUNTER 2017-02-09 21:45 | Emergency (ER) | payer MEDICARE ==
[~2017-02-09] VITALS: Ht 172.7 cm; Wt 75.0 kg
[2017-02-09] MEDS ORDERED: ZIPRASIDONE 20MG CAPSULE ONE (22:28)
[2017-02-09] MEDS ORDERED: ZIPRASIDONE 20MG CAPSULE PO SCH (22:30)
[2017-02-09 22:32] LABS: HEMATOCRIT 36.8 % (34.6-47.8); HEMOGLOBIN 12.2 g/dL (11.7-16.4); WHITE BLOOD COUNT 11.5 x10^3/uL (3.4-10)
[2017-02-09 22:44] LABS: ASPARTATE AMINO TRANSFERASE 301 U/L (15-37); BLOOD UREA NITROGEN 7 mg/dL (7-18)
[2017-02-09 22:46] LABS: ACETAMINOPHEN < 2 mcg/mL (10-30)
[2017-02-09 22:58] LABS: DAU SCREEN DISCLAIMER
[2017-02-10 02:04] VITALS: BP 155/76
== END 2017-02-10 02:08 | disposition home or self-care (01) ==
LOC: ED 21:50
DX: F32.9 Major depressive disorder, single episode, unspecified (principal); F39 Unspecified mood [affective] disorder; F15.10 Other stimulant abuse, uncomplicated; Z72.89 Other problems related to lifestyle; J44.9 Chronic obstructive pulmonary disease, unspecified; I10 Essential (primary) hypertension; I25.2 Old myocardial infarction; Z90.710 Acquired absence of both cervix and uterus
CPT/HCPCS: 36415; 80053; 80307; 80329; 85025; 99284; G0479; G0480

== ENCOUNTER 2017-03-02 06:31 | Emergency (ER) | payer MEDICARE ==
[~2017-03-02] VITALS: Ht 172.7 cm; Wt 75.0 kg
[2017-03-02] MEDS ORDERED: SODIUM CHLORIDE FLUSH 10ML SYR IVF ONE (07:00)
[2017-03-02] MEDS ORDERED: SODIUM CHLORIDE 0.9% 1,000ML IVBOLUS ONE (07:00)
[2017-03-02 07:05] LABS: HEMATOCRIT 37.3 % (34.6-47.8); HEMOGLOBIN 12.5 g/dL (11.7-16.4); WHITE BLOOD COUNT 12.5 x10^3/uL (3.4-10)
[2017-03-02] MEDS ORDERED: ONDANSETRON 2MG/ML, 2ML ONE (07:13)
[2017-03-02 07:17] LABS: ASPARTATE AMINO TRANSFERASE 27 U/L (15-37); BLOOD UREA NITROGEN 7 mg/dL (7-18)
[2017-03-02 08:00] VITALS: BP 173/105
[2017-03-02] MEDS ORDERED: ONDANSETRON 2MG/ML, 2ML IVPush ONE (08:30)
== END 2017-03-02 08:25 | disposition home or self-care (01) ==
LOC: ED 06:44
DX: Z76.0 Encounter for issue of repeat prescription (principal); R10.13 Epigastric pain; R10.11 Right upper quadrant pain; R11.0 Nausea; J44.9 Chronic obstructive pulmonary disease, unspecified; I10 Essential (primary) hypertension; I25.2 Old myocardial infarction; Z90.710 Acquired absence of both cervix and uterus
CPT/HCPCS: 36415; 76700; 80053; 83690; 85025; 96361; 96374; 99285; J2405; J7030

== ENCOUNTER 2017-03-06 09:07 | Inpatient (IN) | payer MEDICARE ==
[~2017-03-06] VITALS: Ht 170.2 cm; Wt 84.7 kg
[2017-03-06] MEDS ORDERED: SODIUM CHLORIDE 0.9% 1,000ML IVBOLUS ONE (09:30)
[2017-03-06] MEDS ORDERED: CHARCOAL/SORBITOL 50 GM/240 ML PO ONE (09:30)
[2017-03-06 09:42] LABS: HEMOGLOBIN 13.5 g/dL (11.7-16.4); WHITE BLOOD COUNT 11.8 x10^3/uL (3.4-10)
[2017-03-06] MEDS ORDERED: CHARCOAL/SORBITOL 50 GM/240 ML ONE (09:44)
[2017-03-06 09:45] LABS: DAU SCREEN DISCLAIMER
[2017-03-06 09:49] LABS: HCG UR LOT HCG7030192; HCG UR OBC PASS
[2017-03-06 09:52] LABS: ASPARTATE AMINO TRANSFERASE 33 U/L (15-37); BLOOD UREA NITROGEN 7 mg/dL (7-18)
[2017-03-06 09:53] LABS: ACETAMINOPHEN < 2 mcg/mL (10-30)
[2017-03-06] MEDS ORDERED: ONDANSETRON 2MG/ML, 2ML IVPush ONE (10:00)
[2017-03-06] MEDS ORDERED: ACETAMINOPHEN 325 MG TABLET PO PRN (12:00)
[2017-03-06] MEDS ORDERED: ONDANSETRON 2MG/ML, 2ML IVPush PRN (12:00)
[2017-03-06 13:00] VITALS: BP 144/80
[2017-03-06] MEDS: SODIUM CHLORIDE 0.9% 1,000 ML IV SCH ×2 (13:12→19:55)
[2017-03-06] MEDS: ENOXAPARIN 40 MG/0.4 ML SQ SCH (13:12)
[2017-03-06] MEDS ORDERED: PROAIR INH PRN (16:30)
[2017-03-06] MEDS ORDERED: ALBUTEROL SULFATE 2.5 MG/3 ML NPPB PRN (16:30)
[2017-03-06 19:26] VITALS: BP 155/78
[2017-03-07 00:33] VITALS: BP 143/86
[2017-03-07] MEDS: SODIUM CHLORIDE 0.9% 1,000 ML IV SCH ×2 (02:31→08:26)
[2017-03-07 05:49] LABS: HEMOGLOBIN 12.4 g/dL (11.7-16.4); WHITE BLOOD COUNT 6.7 x10^3/uL (3.4-10)
[2017-03-07 06:05] LABS: ASPARTATE AMINO TRANSFERASE 25 U/L (15-37); BLOOD UREA NITROGEN 6 mg/dL (7-18)
[2017-03-07 07:30] VITALS: BP 146/82
[2017-03-07] MEDS: FLUTICASONE/VILANTEROL 100-25MCG/INH HOMEINH SCH (08:26)
[2017-03-07] MEDS: LACTULOSE 10 GM/15 ML UDC PO SCH ×2 (11:47→21:06)
[2017-03-07] MEDS: CITALOPRAM 20 MG TABLET PO SCH (11:47)
[2017-03-07] MEDS: AMLODIPINE 5 MG TABLET PO SCH ×2 (11:47→21:06)
[2017-03-07] MEDS: ENOXAPARIN 40 MG/0.4 ML SQ SCH (11:48)
[2017-03-07 12:25] VITALS: BP 150/91
[2017-03-07 15:08] VITALS: BP 145/80
[2017-03-07] MEDS ORDERED: CALCIUM CARBONATE 500 MG TAB.CHEW PO PRN (16:30)
[2017-03-07 19:48] VITALS: BP 161/82
[2017-03-07] MEDS ORDERED: LATANOPROST OPHTH 0.005%, 2.5ML EACHEYE SCH (21:00)
[2017-03-07] MEDS: FAMOTIDINE 20 MG TABLET PO SCH (21:06)
[2017-03-08 08:00] VITALS: BP 158/68
[2017-03-08] MEDS: AMLODIPINE 5 MG TABLET PO SCH (08:55)
[2017-03-08] MEDS: CITALOPRAM 20 MG TABLET PO SCH (08:55)
[2017-03-08] MEDS: FAMOTIDINE 20 MG TABLET PO SCH (08:55)
[2017-03-08] MEDS: FLUTICASONE/VILANTEROL 100-25MCG/INH HOMEINH SCH (08:56)
[2017-03-08] MEDS: LACTULOSE 10 GM/15 ML UDC PO SCH (10:29)
== END 2017-03-08 10:51 | DRG 917 ==
LOC: ED 09:10 → EDIP 11:40 → 4EST 12:34 → 3E 03-07 14:52
PROVIDERS: ADMIT Hospitalist; ATTEND Family Medicine
DX: T42.4X2A Poisoning by benzodiazepines, intentional self-harm, initial encounter (principal); E43 Unspecified severe protein-calorie malnutrition; K74.60 Unspecified cirrhosis of liver; N19 Unspecified kidney failure; F32.9 Major depressive disorder, single episode, unspecified; T42.6X2A Poisoning by other antiepileptic and sedative-hypnotic drugs, intentional self-harm, initial encounter; T45.0X2A Poisoning by antiallergic and antiemetic drugs, intentional self-harm, initial encounter; F41.1 Generalized anxiety disorder; I10 Essential (primary) hypertension; J44.9 Chronic obstructive pulmonary disease, unspecified; Z90.49 Acquired absence of other specified parts of digestive tract; Z90.89 Acquired absence of other organs; Z90.710 Acquired absence of both cervix and uterus; Z59.0 Homelessness; Y92.89 Other specified places as the place of occurrence of the external cause
CPT/HCPCS: 36415; 71010; 80053; 80307; 80329; 81025; 82140; 85025; 93005; J1650; J2405; G0479; G0480; J7030

== ENCOUNTER 2017-04-16 09:35 | Emergency (ER) | payer MEDICARE ==
[~2017-04-16] VITALS: Ht 172.7 cm; Wt 85.0 kg
[2017-04-16 10:11] VITALS: BP 162/89
== END 2017-04-16 10:21 | disposition home or self-care (01) ==
LOC: ED 09:43
DX: Z76.0 Encounter for issue of repeat prescription (principal); F17.200 Nicotine dependence, unspecified, uncomplicated; Z90.49 Acquired absence of other specified parts of digestive tract; Z90.710 Acquired absence of both cervix and uterus; I10 Essential (primary) hypertension; J44.9 Chronic obstructive pulmonary disease, unspecified; R11.2 Nausea with vomiting, unspecified
CPT/HCPCS: 99283

== ENCOUNTER 2019-04-07 19:09 | Emergency (ER) | payer MEDICARE ==
[~2019-04-07 19:09] MED LIST changes: -ALBU6.7H INH; +ALBU6.7H8 INH; -ALPR-475 PO; +ALPR0.5T7 PO; +AMLO-150 PO; -AMLO5TAB2 PO; +LACT10SO24 PO; -LACT10SO5 PO; +OMEP40CA42 PO; -OMEP40CA6 PO; -TIZA4TAB PO; +TIZA4TAB2 PO
== END 2019-04-07 19:14 ==
LOC: ED 19:09
DX: R10.2 Pelvic and perineal pain (principal); Z53.21 Procedure and treatment not carried out due to patient leaving prior to being seen by health care provider